=== PATIENT | female | born 1960 | race Caucasian/White ===

== ENCOUNTER 2017-10-13 09:15 | Emergency (ER) | payer MEDICAID, SELFPAY ==
[2017-10-13] VITALS (29 sets, daily range): BP systolic 106–138; BP diastolic 58–110; PULSE 54–76; RESP 12–25; TEMP 36.7; O2SAT 95–100
--- NOTE | 2017-10-13 09:31 | DI.REPORT_ITS ---
SYMPTOM/DIAGNOSIS: CHEST PAIN PA AND LATERAL CHEST: Comparison is made with 25 September 2012. The heart size is normal. The aorta is mildly tortuous The lungs appear clear. No infiltrate, effusion or pneumothorax is seen. IMPRESSION: No acute abnormality.
--- NOTE | 2017-10-13 09:32 | ED.GENADUL ---
Disposition Clinical Impression: Chest pain Disposition: HOME Condition: Stable Instructions: Chest Pain (ED) Additional Instructions: follow up with your primary care provider this week if you have severe worsening of pain, difficulty breathing or pain that makes you vomit or have sweating return to the emergency department Medical Decision Making - Lab Data Results reviewed for labs ordered during visit: Yes - EKG Data -: EKG Interpreted by Me EKG shows normal: sinus rhythm, axis, intervals, QRS complexes, ST-T waves Rate: normal Interpretation: normal EKG - Radiology Data Radiology results: image reviewed - Medical Decision Making 57 yo female here with intermittent sensation of fluttering in her chest, normal tele so far here and unremarkable ekg. Could be having svt vs afib. Symptoms do not seem consistent with acs, heart score is 2 based on smoking history and age, will send troponin. Wells score low, will send d dimer. No tearing back pain and normal vascular exam so doubt dissection labs and imaging show no acute findings, she remains stable and asymptomatic at this time. Given her heart score of 2 feel she is appropriate for delta troponin and if negative can have outpatient w/u pt remains astymptomatic, second troponin negative. will have her see her pcp's office this week and return precautions given - Differential Diagnosis afib, palpitations, acs, pe History of Present Illness - General Chief complaint: Chest Pain Stated complaint: CHEST PAIN Time Seen by Provider: 10/13/17 09:15 Source: patient Mode of arrival: ambulatory Limitations: no limitations - History of Present Illness Initial comments: 57 yo female who denies chronic medical problems, former smoker who quit 17 years ago, comes in with intermittent fluttering sensation in her chest that started after waking up this morning. she states yesterday she felt her normal self and went to bed feeling well, no recent fevers, travel or surgeries. She denies any radiation of pain, diaphoresis, n/v, back pain. She has no abdominal tenderness. Denies pain with exertion. She states the fluttering sensation lasts a few minutes and goes away on it's own, denies any sensation that she may pass out MD Complaint: fluttering in chest Onset/Timin -: hour(s) Location: chest Radiation: non-radiation Severity scale (1-10): 1 Quality: other (fluttering) Consistency: intermittent Improves with: none Worsens with: none Associated Symptoms: denies other symptoms Treatments Prior to Arrival: none - Related Data Ibuprofen 400 mg PO PRN 10/19/16 Allergies Allergy/AdvReac Type Severity Reaction Status Date / Time No Known Allergies Allergy Unverified 10/13/17 09:31 Review of Systems Constitutional: denies: fever Respiratory: denies: shortness of breath Cardiovascular: chest pain, palpitations. denies: dyspnea on exertion Gastrointestinal: denies: abdominal pain, nausea, vomiting Musculoskeletal: denies: back pain Neurological: denies: headache Comment: All other systems reviewed and negative Past Medical History - Past Medical History Medical history: no medical history - Social History Smoking status: former smoker Alcohol use: occasionally Drug use: none General Exam - General Limitations: no limitations General appearance: alert, in no apparent distress - Head Head exam: Present: atraumatic - Eye Eye exam: Present: normal apperance - ENT ENT exam: Present: mucous membranes moist - Neck Neck exam: Present: normal inspection - Respiratory Respiratory exam: Present: normal lung sounds bilaterally. Absent: respiratory distress - Cardiovascular Cardiovascular Exam: Present: regular rate, normal rhythm, normal heart sounds - GI/Abdominal GI/Abdominal exam: Absent: tenderness - Back Exam Back exam: Present: normal inspection - Neurological Exam Neurological exam: Present: alert, oriented X3 - Psychiatric Psychiatric exam: Present: normal affect - Skin Skin exam: Present: warm Course Vital Signs - 24 hr 10/13/17 09:25 Temperature 98.1 F Pulse 76 Respiratory 16 Rate Blood Pressure 136/62 Pulse Oximetry 97
[2017-10-13] MEDS: Aspirin 81 MG CHEW 324 MG CH (09:35)
[2017-10-13 09:57] LABS: Abs Immature Grans 0.01 k/cumm (0.0-0.09); Absolute Basophil Count 0.13 k/cumm (0.0-0.2); Absolute Eosinophil Count 0.15 k/cumm (0.0-0.7); Absolute Monocyte Count 0.38 k/cumm (0.11-0.7); Absolute Neutrophil Count 4.17 k/cumm (1.2-6.7); Basophils % 1.9; Eosinophils % 2.2; HCT 43.8 % (36.0-46.0); HGB 14.6 g/dL (12.0-15.5); Immature Grans % 0.1; Lymphocytes % 29.2; Mean Corp. HGB Concentration 33.3 g/dL (32.0-36.0); Mean Corpuscular Hemoglobin 30.4 pg (27.0-33.0); Mean Corpuscular Volume 91.3 fL (80-95); Mean Platelet Volume 9.8 fL (8.0-11.0); Monocytes % 5.6; Platelet Count 286 x1000/uL (130-400); RBC Distribution Width 12.9 % (11.7-14.6); White Blood Cell Count 6.84 k/cumm (4.4-10.8)
[2017-10-13 10:05] LABS: ALT 17 U/L (12-78); AST 14 U/L (15-37); Albumin 3.7 g/dL (3.4-5.0); Alkaline Phosphatase 71 U/L (46-116); Anion Gap 8.2 mmol/L (3-11); BUN 12 mg/dL (7-18); Bilirubin, Total 0.4 mg/dL (0.2-1.0); CO2 29.8 mmol/L (21.0-32.0); CREATININE 0.66 mg/dL (0.55-1.02); Calcium 8.8 mg/dL (8.5-10.1); Chloride 105 mmol/L (98-107); Glucose 92 mg/dL (70-100); Potassium 3.9 mmol/L (3.5-5.1); Sodium 143 mmol/L (136-145); Total Protein 7.1 g/dL (6.4-8.2)
[2017-10-13 10:07] LABS: Troponin I < 0.02 ng/mL (0.00-0.06)
[2017-10-13 10:19] LABS: D-Dimer 412 ng/mlFEU (<500)
--- NOTE | 2017-10-13 11:00 | DI.VRAD_ITS ---
EXAM: XR Chest, 2 Views EXAM DATE/TIME: 10/13/2017 10:01 AM CLINICAL HISTORY: 57 years old, female; Signs and symptoms; Other: Chest pain TECHNIQUE: Frontal and lateral views of the chest. COMPARISON: CR - ABD FLAT UPRIGHT PA CHEST 2012-09-25 08:51 FINDINGS: Lungs: Unremarkable. No consolidation. Pleural space: Unremarkable. No pneumothorax. Heart: Unremarkable. No cardiomegaly. Mediastinum: Unremarkable. Bones/joints: Unremarkable. IMPRESSION: No acute findings. Dictated and Authenticated by: Lori Loco MD. Ordering:LAI WOODS MD
[2017-10-13 12:45] LABS: Troponin I < 0.02 ng/mL (0.00-0.06)
--- NOTE | 2017-10-14 11:43 | CMPROGNOTE_ITS ---
Care Management Progress Note 10/14-Dr. Montoya requested assistance with a PCP f/u (Julio Cesar) this week for chest pain. Referral faxed to [facility] this am.
== END 2017-10-13 13:17 | disposition home or self-care (01) ==
PROVIDERS: Emergency Provider Emergency Medicine; PCP Family Medicine
DX: R07.9 Chest pain, unspecified (principal); Z87.891 Personal history of nicotine dependence
CPT/HCPCS: 36415; 80053; 93005; 99284; 71046; 83735; 84484; 85025; 85379; 86618; 87798; 93010

== ENCOUNTER 2018-07-08 09:01 | Outpatient (CLI) | payer MEDICAID, SELFPAY ==
[2018-07-08 12:26] LABS: Vitamin B12 215 pg/mL (193-986)
== END 2018-07-08 09:21 ==
PROVIDERS: PCP Family Medicine; Visit Provider Family Medicine
DX: R20.2 Paresthesia of skin (principal)
CPT/HCPCS: 36415; 82607

== ENCOUNTER 2018-08-21 01:05 | Outpatient (CLI) | payer MEDICAID, SELFPAY ==
--- NOTE | 2018-08-21 08:20 | DI.MAMMO_ITS ---
SYMPTOM/DIAGNOSIS: SCREENING, Z12.31 MAMMOGRAM: 08/21 Mammograms were interpreted according to the usual protocol including computer analysis with CAD system, tomosynthesis and C view imaging. The breasts are of moderate density with fairly symmetrical distribution of fibroglandular tissue. No dominant mass or clumped microcalcifications identified in either breast. The current examination is compared with the previous examinations including Dec 2015, and there has been no gross interval change in appearance in comparison with the previous studies. CONCLUSION: No specific evidence of malignancy at this time. Routine screening examinations recommended at yearly intervals due to the family history of breast carcinoma. Category 1, breast density category B. MQSA ASSESSMENT OF FINDINGS: Negative. Category 1. Patient will receive a letter notifying them of these results. BI-RADS category B. There are scattered areas of fibroglandular density.
== END 2018-08-21 01:25 ==
PROVIDERS: PCP Family Medicine; Visit Provider Family Medicine
DX: Z12.31 Encounter for screening mammogram for malignant neoplasm of breast (principal); Z80.3 Family history of malignant neoplasm of breast
CPT/HCPCS: 77063; 77067

== ENCOUNTER 2018-09-22 00:32 | Outpatient (CLI) | payer MEDICAID, SELFPAY ==
--- NOTE | 2018-09-22 09:25 | DI.MRI_ITS ---
SYMPTOMS/DIAGNOSIS: LEFT SCIATICA WITH BILATERAL CLAUDICATION, M54.16, RADICULAR LUMBAR REGION MRI OF THE LUMBAR SPINE: Routine noncontrast examination was performed. There are no priors for comparison. The conus medullaris has a normal appearance and location. At L 5 - S 1 there is disc desiccation. There is a small central disc herniation. No significant central spinal canal stenosis is seen. Mild narrowing of the neural foramen is seen bilaterally. There are degenerative changes of the facet joints. At L 4 - 5 there is disc desiccation. Mild degenerative endplate signal changes are present. No focal disc herniation or significant central spinal canal stenosis or neural foraminal stenosis is seen. There are degenerative changes of the facets. At L 3 - 4 there is disc desiccation. No focal disc herniation, central spinal canal or neural foraminal stenosis is seen. At L 2 - 3 there are mild degenerative endplate signal changes. No focal disc herniation, central spinal canal or neural foraminal stenosis is present. At L 1 - 2 there is no focal disc herniation, central spinal canal or neural foraminal stenosis. Note is made of degenerative disease at T 11, T 12. IMPRESSION: Multilevel degenerative changes in the lumbar spine. The findings do result in mild narrowing of the neural foramen at L 5 - S 1.
== END 2018-09-22 00:52 ==
PROVIDERS: PCP Family Medicine; Visit Provider Psychiatry & Neurology Neurology
DX: M54.16 Radiculopathy, lumbar region (principal); M54.32 Sciatica, left side; M51.17 Intervertebral disc disorders with radiculopathy, lumbosacral region
CPT/HCPCS: 72148

== ENCOUNTER 2018-10-08 09:51 | Outpatient (CLI) | payer MEDICAID, SELFPAY ==
--- NOTE | 2018-10-08 09:21 | DI.RAD_ITS ---
SYMPTOMS/DIAGNOSIS: RT KNEE PAIN RIGHT KNEE: Comparison is made with [id number]. There is now mild narrowing of the lateral femoral tibial joint space and periarticular spurring. There is mild spurring at the patellofemoral joint. No joint effusion is visible. IMPRESSION: Moderate degenerative changes of the lateral femoral tibial joint.
== END 2018-10-08 10:11 ==
PROVIDERS: PCP Family Medicine; Visit Provider Physician Assistant
DX: M25.561 Pain in right knee (principal)
CPT/HCPCS: 73562

== ENCOUNTER 2019-12-16 02:56 | Outpatient (CLI) | payer MEDICAID, SELFPAY ==
[2019-12-16 09:38] LABS: ALT 19 U/L (14-59); AST 20 U/L (15-37); Albumin 3.9 g/dL (3.4-5.0); Alkaline Phosphatase 64 U/L (46-116); Anion Gap 6.8 mmol/L (3-11); BUN 13 mg/dL (7-18); Bilirubin, Total 0.5 mg/dL (0.2-1.0); CO2 29.2 mmol/L (21.0-32.0); Calcium 9.1 mg/dL (8.5-10.1); Calculated LDL 108 mg/dL (<100); Chloride 105 mmol/L (98-107); Cholesterol 255 mg/dL (<200); Glucose 85 mg/dL (74-106); HDL Cholesterol 140 mg/dL (40-60); Potassium 4.5 mmol/L (3.5-5.1); Sodium 141 mmol/L (136-145); Total Protein 7.1 g/dL (6.4-8.2); Triglyceride 36 mg/dL (<150); Vitamin B12 260 pg/mL (193-986)
[2019-12-16 09:56] LABS: C-Reactive Protein < 0.05 mg/dL (0.0-0.3)
[2019-12-16 19:50] LABS: Rheumatoid Factor <8.6 IU/mL (<12.0)
== END 2019-12-16 03:16 ==
DX: D51.8 Other vitamin B12 deficiency anemias (principal); Z13.220 Encounter for screening for lipoid disorders; Z00.00 Encounter for general adult medical examination without abnormal findings; I10 Essential (primary) hypertension; M79.641 Pain in right hand; M79.642 Pain in left hand; M79.671 Pain in right foot; M79.672 Pain in left foot
CPT/HCPCS: 36415; 80053; 80061; 82607; 86140; 86431

== ENCOUNTER 2020-01-06 01:29 | Outpatient (CLI) | payer MEDICAID, SELFPAY ==
--- NOTE | 2020-01-06 07:45 | DI.MAMMO_ITS ---
EXAM: MG MAMMO SCREENING CLINICAL HISTORY: screening,Z12.39 TECHNIQUE: Bilateral full field digital CC and MLO mammographic images were obtained with 3D tomosyn thesis and utilizing computer aided detection (CAD). COMPARISON: Available for comparison. FINDINGS: Masses/Architectural Distortion: None seen. Microcalcifications: No suspicious pleomorphic-type are seen. Skin Thickening/Nipple Retraction: None. IMPRESSION: 1. No significant interval change with no specific features of malignancy noted. 2. Unless there is more urgent need, screening mammography is recommended, as per [employer] guidelines. BI-RADS Category 1 - Negative Breast Density - Category B - Scattered areas of fibroglandular density A negative radiographic report should not delay biopsy if a dominant or clinically suspicious mass is present. Up to ten percent of cancers are not identified on mammography. A negative report may reinforce clinical impression. Adenosis and dense breasts may obscure an underlying neoplasm. False positive reports average 6 to 10%. Patient will receive a letter notifying them of these results.
== END 2020-01-06 01:49 ==
DX: Z12.31 Encounter for screening mammogram for malignant neoplasm of breast (principal)
CPT/HCPCS: 77063; 77067

== ENCOUNTER 2020-05-23 03:36 | Outpatient (CLI) | payer MEDICAID, SELFPAY ==
[2020-05-24 13:50] LABS: COVID-19 RT-PCR UVMMC Result Negative (Negative)
== END 2020-05-23 03:37 | disposition home or self-care (01) ==
LOC: LBO 03:37
DX: Z20.822 Contact with and (suspected) exposure to COVID-19 (principal)
CPT/HCPCS: U0003

== ENCOUNTER 2020-12-29 02:49 | Outpatient (CLI) | payer MEDICAID, SELFPAY ==
[2020-12-29 09:16] LABS: ALT 26 U/L (14-59); AST 17 U/L (15-37); Albumin 3.8 g/dL (3.4-5.0); Alkaline Phosphatase 74 U/L (46-116); Anion Gap 9.2 mmol/L (3-11); BUN 11 mg/dL (7-18); Bilirubin, Total 0.6 mg/dL (0.2-1.0); CO2 28.8 mmol/L (21.0-32.0); CREATININE 0.6 mg/dL (0.55-1.02); Chloride 106 mmol/L (98-107); Glucose 84 mg/dL (74-106); Potassium 4.4 mmol/L (3.5-5.1); Sodium 144 mmol/L (136-145); Total Protein 6.6 g/dL (6.4-8.2)
== END 2020-12-29 02:50 | disposition home or self-care (01) ==
LOC: LBO 02:49
DX: Z00.00 Encounter for general adult medical examination without abnormal findings (principal)
CPT/HCPCS: 36415; 80053

== ENCOUNTER 2021-01-13 02:01 | Outpatient (CLI) | payer MEDICAID, SELFPAY ==
--- NOTE | 2021-01-13 14:15 | DI.MAMMO_ITS ---
Exam(s) MAMMO SCREENING EXAM: MAMMO SCREENING CLINICAL HISTORY: screening, Z12.39 TECHNIQUE: Mammograms were interpreted according to the usual protocol including computer analysis w [employer] CAD system, tomosynthesis and C-view imaging. COMPARISON: 2012 through 2019 FINDINGS: The breasts are composed of scattered fibroglandular densities, Breast Density category B. No suspicious masses or suspicious microcalcifications are seen. No skin thickening or abnormal axillary lymph nodes are seen. There has been no significant change from prior exams. IMPRESSION: BI-RADS Category 1, Negative mammogram Yearly screening mammography is recommended. Breast Density - Category B, scattered fibroglandular densities. A negative radiographic report should not delay biopsy if a dominant or clinically suspicious mass is present. Up to ten percent of cancers are not identified on mammography. A negative report may reinforce clinical impression. Adenosis and dense breasts may obscure an underlying neoplasm. False positive reports average 6 to 10%. Patient will receive a letter notifying them of these results.
== END 2021-01-13 02:21 ==
DX: Z12.31 Encounter for screening mammogram for malignant neoplasm of breast (principal)
CPT/HCPCS: 77063; 77067

== ENCOUNTER 2022-07-10 02:54 | Outpatient (CLI) | payer MEDICAID, SELFPAY ==
[2022-07-10 07:41] LABS: Anion Gap 6.2 mmol/L (3-11); BUN 13 mg/dL (7-18); CO2 27.8 mmol/L (21.0-32.0); CREATININE 0.7 mg/dL (0.55-1.02); Calcium 8.8 mg/dL (8.5-10.1); Chloride 107 mmol/L (98-107); Estimated GFR 98.34 (mL/min/1.73m2); Glucose 85 mg/dL (74-106); Potassium 4.1 mmol/L (3.5-5.1); Sodium 141 mmol/L (136-145)
== END 2022-07-10 02:55 | disposition home or self-care (01) ==
LOC: LBO 02:55
PROVIDERS: PCP Nurse Practitioner Family; Visit Provider Nurse Practitioner Family
DX: I10 Essential (primary) hypertension (principal); Z13.1 Encounter for screening for diabetes mellitus
CPT/HCPCS: 36415; 80048

== ENCOUNTER 2022-07-17 01:19 | Outpatient (CLI) | payer MEDICAID, SELFPAY ==
--- NOTE | 2022-07-17 07:35 | DI.MAMMO_ITS ---
Exam(s) MAMMO SCREENING EXAM: MAMMO SCREENING CLINICAL HISTORY: screening,z12.39 TECHNIQUE: Bilateral full field digital CC and MLO mammographic images were obtained with 3D tomosyn thesis and utilizing computer aided detection (CAD). COMPARISON: Available for comparison. FINDINGS: Masses/Architectural Distortion: None seen. Microcalcifications: No suspicious pleomorphic-type are seen. Skin Thickening/Nipple Retraction: None. IMPRESSION: 1. No significant interval change with no specific features of malignancy noted. 2. Unless there is more urgent need, screening mammography is recommended, as per [employer] [employer] guidelines. BI-RADS Category 1 - Negative Breast Density - Category B - Scattered areas of fibroglandular density Breast density category C or D implies that the patient has dense breast tissue. Dense breast tissue is very common and is not abnormal but dense breast tissue can make it harder to find cancer on a ma mmogram. Also, dense breast tissue may increase their breast cancer risk. This information about the result of the mammogram report was provided to the patient to raise their awareness. Use this report when you speak with the patient about their risks for breast cancer, which includes their family hist ory. At that time, you may recommend for more screening tests (Ultrasound or MRI) as they might be us eful based on their risk. A negative radiographic report should not delay biopsy if a dominant or clinically suspicious mass is present. Up to ten percent of cancers are not identified on mammography. A negative report may reinforce clinical impression. Adenosis and dense breasts may obscure an underlying neoplasm. False positive reports average 6 to 10%. Patient will receive a letter notifying them of these results.
== END 2022-07-17 01:39 ==
PROVIDERS: PCP Nurse Practitioner Family; Visit Provider Nurse Practitioner Family
DX: Z12.31 Encounter for screening mammogram for malignant neoplasm of breast
CPT/HCPCS: 77063; 77067

== ENCOUNTER 2022-10-18 12:43 | Outpatient (CLI) | payer MEDICAID, SELFPAY ==
[2022-10-18 16:28] LABS: MCH 30.1 pg (27.0-33.0); MCHC 33.3 % (32.0-36.0); MCV 90 fL (80-95); MPV 9.3 fL (8.0-11.0); Platelet Count 305 10^3/uL (130-400); RBC 4.65 10^6/uL (3.93-5.22); RDW 12.4 % (11.7-14.6); RDW-SD 40.6 fL; WBC 8.04 10^3/uL (4.4-10.8)
[2022-10-18 18:02] LABS: TSH (W/Ref FT4) 1.71 uIU/mL (0.36-3.74)
== END 2022-10-18 12:44 | disposition home or self-care (01) ==
LOC: LBO 10-23 12:43
PROVIDERS: PCP Nurse Practitioner Family; Visit Provider Nurse Practitioner Family
DX: R53.83 Other fatigue (principal); R00.2 Palpitations; Z13.1 Encounter for screening for diabetes mellitus
CPT/HCPCS: 36415; 85027; 83036; 84443

== ENCOUNTER 2023-01-23 15:10 | Outpatient (REF) | payer MEDICAID, SELFPAY ==
[2023-01-23 21:47] LABS: Bilirubin Negative (Negative); Blood Trace-lysed (Negative); Clarity Clear (Clear); Glucose Negative (Negative); Ketones Trace mg/dL (Negative); Leukocyte Esterase Small (Negative); Nitrite Negative (Negative); Urobilinogen 0.2 mg/dL (Up to 0.2); pH 5.5 (5-8)
[2023-01-23 21:57] LABS: Bacteria Rare HPF (Negative); C & S Indicated? Yes; Casts Negative LPF (Negative); Crystals Negative HPF (Negative); Epithelial Cells Rare HPF (Negative); Mucus Trace (Negative); RBC 0-2 HPF (0-2)
== END 2023-01-23 15:11 | disposition home or self-care (01) ==
LOC: LBN 15:10
PROVIDERS: PCP Nurse Practitioner Family; Visit Provider Nurse Practitioner Family
DX: R30.0 Dysuria (principal); N39.0 Urinary tract infection, site not specified; R82.89 Other abnormal findings on cytological and histological examination of urine
CPT/HCPCS: 81003; 81015; 87086; 87480; 87510; 87660

== ENCOUNTER 2023-07-02 05:46 | Outpatient (CLI) | payer MEDICAID, SELFPAY ==
[2023-07-02 16:39] LABS: Anion Gap 7.8 mmol/L (3-11); BUN 15 mg/dL (7-18); CO2 27.2 mmol/L (21.0-32.0); CREATININE 0.5 mg/dL (0.55-1.02); Calcium 8.7 mg/dL (8.5-10.1); Chloride 107 mmol/L (98-107); Estimated GFR 105.98 (mL/min/1.73m2); Glucose 83 mg/dL (74-106); Sodium 142 mmol/L (136-145)
== END 2023-07-02 05:47 | disposition home or self-care (01) ==
LOC: LBO 05:46
PROVIDERS: PCP Nurse Practitioner Family; Visit Provider Nurse Practitioner Family
DX: I10 Essential (primary) hypertension (principal)
CPT/HCPCS: 36415; 80048

== ENCOUNTER → 2023-07-24 04:09 | Outpatient (CLI) | payer MEDICAID, SELFPAY ==
--- NOTE | 2023-07-24 08:00 | DI.MAMMO_ITS ---
Exam(s) MAMMO SCREENING EXAM: MAMMO SCREENING CLINICAL HISTORY: screening, Z12.39 TECHNIQUE: Mammograms were interpreted according to the usual protocol including computer analysis w [employer] CAD system, tomosynthesis and C-view imaging. COMPARISON: 2014 through 2022 FINDINGS: The breasts are composed of mainly fatty density , Breast Density category A. No suspicious masses or suspicious microcalcifications are seen. No skin thickening or abnormal axillary lymph nodes are seen. There has been no significant change from prior exams. IMPRESSION: BI-RADS Category 1, Negative mammogram Yearly screening mammography is recommended. Breast Density - Category A, fatty density. A negative radiographic report should not delay biopsy if a dominant or clinically suspicious mass is present. Up to ten percent of cancers are not identified on mammography. A negative report may reinforce clinical impression. Adenosis and dense breasts may obscure an underlying neoplasm. False positive reports average 6 to 10%. Patient will receive a letter notifying them of these results.
== END ==
PROVIDERS: PCP Nurse Practitioner Family; Visit Provider Nurse Practitioner Family
DX: Z12.31 Encounter for screening mammogram for malignant neoplasm of breast (principal)
CPT/HCPCS: 77063; 77067

== ENCOUNTER → 2023-09-17 01:05 | Outpatient (CLI) | payer MEDICAID, SELFPAY ==
--- OUTSIDE RECORDS SUMMARY | 2023-09-17 01:08 | XMS_ITS | Clinical Summary ---
Author Organization [facility] Address [address] [place] [address] Care Team Providers Care Cannon Fire Direction Specialist Name Role Phone Unknown, Provider Primary Care Provider [phone] Social History Tobacco Use Types Packs/Day Years Used Date Smoking Tobacco: Never Assessed Sex and Gender Information Value Date Recorded Sex Assigned at Not on file Gender Identity Not on file Sexual Orientation Not on file Plan of Treatment Health Maintenance Due Date Last Done Comments Hepatitis C Screen 1960 RSV Immunization ( o r 60+ Years) (1 - 1-dose 60+ series) 2021 COVID-19 Vaccine ( season) 2022 Care Teams Cannon Fire Direction Specialist Relationship Specialty Start Date End Date Unknown, Provider, PCP - General 12/29/14
--- OUTSIDE RECORDS SUMMARY | 2023-09-17 01:09 | XMS_ITS | Encounter Summary ---
Author Organization [facility] [place] [address] Care Team Providers Care Windows 7 Deployment Lead Name Role Phone Wilbur Harrell MD Primary Care Provider [phone] Encounter Details Date Type Department Care Team (Late st Contact Info) Description 09/25/2018 Orders Only Vascular Surgery at [facility] [place] [address] Sally Pool, FAMILY SERVICE WORKER PVD (peripheral vascular disease) Social History Tobacco Use Types Packs/Day Years Used Date Smoking Tobacco: Never Assessed Sex and Gender Information Value Date Recorded Sex Assigned at Not on file Gender Identity Not on file Sexual Orientation Not on file documented as of this encounter Plan of Treatment Not on file documented as of this encounter Results * XAVIER, legs, multiple levels (10/28/2018 12:49 PM EDT) VB Text Report Department: Vascular Surgery Lab Patient: [id number] (AJIT ROSADO) CPT: 17162 ICD10: I73.9 Referring Physician: TALITA SORIA MD ?? Phone: Indications: ??Bilateral leg pain and L hip pain with standing and walking. Diabetes mellitus: No ICD10 Diagnosis Code: I73.9 Findings: Right ?Pressure (mm Hg) ?? XAVIER ??Waveform ?? Brachial Artery ?139 ? Common Femoral Artery ?Triphasic ?? Popliteal Artery ? Triphasic ?? Dorsalis Pedis (Ankle) Artery ?140 ? 1.01 ??Triphasic ?? Posterior Tibial (Ankle) Artery ??143 ? 1.03 ??Triphasic ?? Left ? Pressure (mm Hg) ?? XAVIER ??Waveform ?? Brachial Artery ?137 ? Common Femoral Artery ?Triphasic ?? Popliteal Artery ? Triphasic ?? Dorsalis Pedis (Ankle) Artery ?139 ? 1.00 ??Triphasic ?? Posterior Tibial (Ankle) Artery ??139 ? 1.00 ??Triphasic ?? Interpretation: RIGHT: No significant lower extremity arterial occlusive disease identified at rest. LEFT: No significant lower extremity arterial occlusive disease identified at rest. Comparison: ??No previous study in our vascular lab database for comparison. Comment: If patient symptoms are consistent with vascular claudication, consider treadmill exam to identify arterial stenoses that are hemodynamically significant only when the periphery is vasodilated. Electronically Signed by: RICHARD VARGAS on 2018-10-29 02:18:25 PM [facility] VB Text Report End of Report [facility] 10/28/2018 12:4 9 PM EDT Talita Soria MD VASCULAR ORDERABLES [facility] documented in this encounter Visit Diagnoses Diagnosis PVD (peripheral vascular disease) Peripheral vascular disease, unspecified documented in this encounter Care Teams Windows 7 Deployment Lead Relationship Specialty Start Date End Date Wilbur Harrell MD [address] [place] [address] PCP - General Family Medicine 09/24/18 documented as of this encounter
--- OUTSIDE RECORDS SUMMARY | 2023-09-17 01:09 | XMS_ITS | Referral Summary ---
Author Organization [facility] Address [address] [place] [address] Care Team Providers Care Intelligence Research Specialist Name Role Phone Unknown, Provider Primary Care Provider Social History Tobacco Use Types Packs/Day Years Used Date Smoking Tobacco: Never Assessed Sex and Gender Information Value Date Recorded Sex Assigned at Not on file Gender Identity Not on file Sexual Orientation Not on file Plan of Treatment Not on file Care Teams Intelligence Research Specialist Relationship Specialty Start Date End Date Unknown, Provider, PCP - General 12/29/14
--- OUTSIDE RECORDS SUMMARY | 2023-09-17 01:09 | XMS_ITS | Encounter Summary ---
Author Organization [facility] Address [address] [place] [address] Care Team Providers Care Receivable Manager Name Role Phone Unknown, Provider Primary Care Provider [phone] Encounter Details Date Type Department Care Team (Late st Contact Info) Description 12/16/2019 Lab Requisition [facility] Pathology & Laboratory Medicine - [address] [address] Outr Resulting Lab, Provider Social History Tobacco Use Types Packs/Day Years Used Date Smoking Tobacco: Never Assessed Sex and Gender Information Value Date Recorded Sex Assigned at Not on file Gender Identity Not on file Sexual Orientation Not on file documented as of this encounter Plan of Treatment Not on file documented as of this encounter Procedures Procedure Name Priority Date/Time Associated Diagnosis Comments RHEUMATOID FACTOR Routine 12/16/2019 8:00 EDT documented in this encounter Results * RHEUMATOID FACTOR (12/16/2019 8:00 EDT) Rheumatoid Factor <8.6 <12.0 IU/mL 12/16/2019 19:46 EDT [facility] Blood VENOUS BLOOD / Unknown 12/16/2019 8:00 EDT 12/16/2019 19:34 EDT Provider Outr Resulting Lab CHEMISTRY & BLOOD GAS ORDERABLES [facility] [address] [place] [address] documented in this encounter Visit Diagnoses Not on filedocumented in this encounter Care Teams Receivable Manager Relationship Specialty Start Date End Date Unknown, ProviderMD PCP - General 12/29/14 documented as of this encounter
--- OUTSIDE RECORDS SUMMARY | 2023-09-17 01:09 | XMS_ITS | Encounter Summary ---
Author Organization [facility] Address [address] [place] [address] Care Team Providers Care Financial Aid Director Name Role Phone Unavailable Primary Care Provider Saul e Encounter Details Date Type Department Care Team (Late st Contact Info) Description 11/11/2007 Before PRISM Converted Visit (Maple) [facility] - Maple conversion [address] [place] [address] Ada Razo, [facility] [address] [place] [address] [place] [address] Social History Tobacco Use Types Packs/Day Years Used Date Smoking Tobacco: Never Assessed Sex and Gender Information Value Date Recorded Sex Assigned at Not on file Gender Identity Not on file Sexual Orientation Not on file documented as of this encounter Plan of Treatment Not on file documented as of this encounter Procedures Procedure Name Priority Date/Time Associated Diagnosis Comments HPV DETECTION, HIGH RISK TYPES Routine 11/11/2007 14:20 EDT CYTOPATHOLOGY Routine 11/11/2007 0:00 EDT documented in this encounter Results * HUMAN PAPILLOMA VIRUS DNA TEST (11/11/2007 14:20 EDT) Specimen Description Cervix, ThinPrep vial [facility] Result Negative for HPV types 16, 18, 31, 33, 35, 39, 45, 51, 52, 56, 58, 59, and 68. [facility] Report Status Final [id number] [facility] 11/11/2007 14:2 0 EDT 11/14/2007 13:46 EDT Ada Loveod OVEN TENDER MICROBIOLOGY - GENER AL ORDERABLES [facility] [address] [place] [address] * CYTOPATHOLOGY (11/11/2007 0:00 EDT) Pathology Report: CYTOPATHOLOGY REPORT ? Reports generated via electronic interface contain original data; ? however they are lacking the format of the original report. ? Caution should be taken when reading/interpreti ng unformatted reports. ? Name: ? AJIT ROSADO ? Accession #: ? [id number] ? : ? 1960 (Age: 47) ??F ?Collect Date: ? 11/11/2007 ? Location: ? [facility] ? Receive Date: ? 11/12/2007 ? Provider: ?ADA DANNI OVEN TENDER ? Copy to: ? Specimen/Source: ?ThinPrep Pap Test, Vagina, processed on Cytyc ThinPrep ?? Imaging System, with manual evaluation ? Last Menstrual Period: ? Treatment History: ? Hysterectomy: 1992 S/P ? Other: ? HPVDX - HPV testing requested regardless of diagnosis on current ThinPrep Pap ?? test. ? SPECIMEN ADEQUACY ? Satisfactory for Evaluation ? - assessment of transformation zone component not applicable ( e.g. atrophy, ? vaginal sample, hysterectomy) ? GENERAL CATEGORIZATION ? Negative for Intraepithelial Lesion or Malignancy ? Document reviewed and electronically signed by: ? Yumiko Lujan, SCT(ASCP) ? Report Date: ??11/13/2007 15:39 ? End of Report ? [facility] 11/11/2007 11/12/2007 Ada Razo OVEN TENDER PATHOLOGY ORDERABLES Performing Organization Address City/State/[facility] Co de Phone Number [facility] [address] [address] documented in this encounter Visit Diagnoses Not on filedocumented in this encounter
--- OUTSIDE RECORDS SUMMARY | 2023-09-17 01:09 | XMS_ITS | Clinical Summary ---
Author Organization [facility] Address [facility] [place] [address] Care Team Providers Care Melt House Drag Operator Name Role Phone Wilbur Harrell MD Primary Care Provider [phone] Allergies No known active allergies Medications Medication Sig Dispensed Refills Start Date End Date Status cyanocobalamin, vitamin B-12, 1,000 mcg Tablet Take 1,000 mcg by mouth daily. Active Family History Medical History Relation Comments Lymphoma Father Coronary Artery Disease Mother Liver Disease Mother Abdominal Aortic Aneurysm Neg Hx Relation Status Comments Father Mother Social History Tobacco Use Types Packs/Day Years Used Date Smoking Tobacco: Former Smokeless Tobacco: Former Quit: 10/28/2000 Comments:1 ppd x 25yr Sex and Gender Information Value Date Recorded Sex Assigned at Not on file Gender Identity Not on file Sexual Orientation Not on file Last Filed Vital Signs Vital Sign Reading Time Taken Comments Blood Pressure 158/73 10/28/2018 2:03 PM EDT Pulse 59 10/28/2018 2:03 PM EDT Temperature - - Respiratory Rate 18 10/28/2018 2:03 PM EDT Oxygen Saturation - - Inhaled Oxygen Concentration - - Weight 74.4 kg (164 lb) 10/28/2018 2:03 PM EDT Height 152.4 cm (5') 10/28/2018 2:03 PM EDT Body Mass Index 32.03 10/28/2018 2:03 PM EDT Plan of Treatment Health Maintenance Due Date Last Done Comments CT Colonography 1961 Colonoscopy 1961 Colorectal Cancer Screening 1961 FIT DNA 1961 FIT 1961 Sigmoidoscopy (10 year) with FIT yearly 1961 Sigmoidoscopy 1961 HIV screen 1979 Hepatitis C Screening 1979 Tdap adult 1980 Tetanus vaccine 1980 HPV test 1991 PAP Smear 1991 Breast Cancer Share Decision Needed 2001 Breast Cancer screening 2001 Zoster vaccine (1 of 2) 2011 Advance Directive 2016 Covid-19 Vaccine (1 - season) 2022 Influenza (Flu) vaccine (1 o f 1 - Influenza standard series) 10/27/2023 Care Teams Melt House Drag Operator Relationship Specialty Start Date End Date Wilbur Harrell MD [address] [place] [address] PCP - General Family Medicine 09/24/18
--- OUTSIDE RECORDS SUMMARY | 2023-09-17 01:09 | XMS_ITS | Encounter Summary ---
Author Organization [facility] Address [address] [place] [address] Care Team Providers Care Debeader Name Role Phone Unknown, Provider Primary Care Provider Encounter Details Date Type Department Care Team (Late st Contact Info) Description 05/23/2020 Lab Requisition [facility] Pathology & Laboratory Medicine - [address] [address] Outr Resulting Lab, Provider Social History Tobacco [...] Procedure Name Priority Date/Time Associated Diagnosis Comments ZZCOVID-19 TEST [facility] PCR Today 05/23/2020 9:50 EDT COVID-19 TESTING Routine 05/23/2020 9:50 EDT documented in this encounter Results * COVID-19 TEST [facility] PCR (05/23/2020 9:50 EDT) Swab ENTIRE NASOPHARYNX / Unknown 05/23/2020 9:50 EDT 05/23/2020 16:12 EDT Provider Outr Resulting Lab MICROBIOLOGY - GENERAL ORDERABLES [facility] [address] [place] [address] * COVID-19 TESTING (05/23/2020 9:50 EDT) COVID-19 rt-PCR Result Negative Negative 05/24/2020 13:42 EDT [facility] Comment: This test has not been FDA cleared or approved. This test has been authorized by FDA under an EUA for use by authorized laboratories. This test has been authorized only for detection of nucleic acid from 2019-nCoV, not for any other viruses or pathogens. This test is only authorized for the duration of the declaration that circumstances exist justifying the authorization of emergency use of in vitro diagnostic tests for detection and/or diagnosis of 2019-nCoV under section 564(b)(1) of Act, 21 U.S.C ?? 360bbb-3(b) (1), unless the authorization is terminated or revoked sooner. Negative results do not preclude 2019-nCoV infection and should not be used as the sole basis for treatment or other patient management decisions. Negative results must be combined with clinical observations, patient history, and epidemiological information. This test was developed and its performance characteristics determined by [facility]. It has not been cleared or approved by the US Food and Drug Administration. FDA does not require this test to go through premarket FDA review. This test is used for clinical purposes. It should not be regarded as investigational or for research. This laboratory is certified under the Clinical Laboratory Improvement Amendments (CLIA) as qualified to perform high complexity clinical laboratory testing. This test is based on the CDC COVID-19 Emergency Use Authorization (EUA) assay, with minor modification as defined by the FDA Performed on the Pikanoteo 7 Pro RT-PCR System. Performing Lab [facility] 05/24/2020 13:42 EDT [facility] Swab 05/23/2020 9:50 EDT 05/23/2020 16:12 EDT Provider Outr Resulting Lab MICROBIOLOGY - GENERAL ORDERABLES [facility] [address] [place] [address] documented in this encounter Visit Diagnoses Not on filedocumented in this encounter Care Teams Debeader Relationship Specialty Start Date End Date Unknown, Provider, PCP - General 12/29/14 documented as of this encounter
--- OUTSIDE RECORDS SUMMARY | 2023-09-17 01:09 | XMS_ITS | Encounter Summary ---
Author Organization [facility] Address [facility] [place] [address] Care Team Providers Care Elastic Cutter Name Role Phone Yumiko Arango MD Primary Care Provider Encounter Details Date Type Department Care Team (Late st Contact Info) Description 09/22/2018 Ancillary Procedure [place] [id number] Wilbur Harrell MD [facility] [address] [facility] [address] [place], [place] [address] Social History Tobacco Use Types Packs/Day Years Used Date Smoking Tobacco: Never Assessed Sex and Gender Information Value Date Recorded Sex Assigned at Not on file Gender Identity Not on file Sexual Orientation Not on file documented as of this encounter Plan of Treatment Not on file documented as of this encounter Procedures Procedure Name Priority Date/Time Associated Diagnosis Comments FILM LIBRARY STORAGE ONLY MR SPINE Routine 09/22/2018 12:00 AM EDT documented in this encounter Results * Film Library- Storage Only MR Spine (09/22/2018 12:00 AM EDT) Narrative RAD - 09/23/2018 4:01 PM EDT This exam is auto-finalizing. It's purpose is for storage only. Wilbur Harrell MD G FILM LIBRARY ORD ERABLES [place], [place] documented in this encounter Visit Diagnoses Not on filedocumented in this encounter Care Teams Elastic Cutter Relationship Specialty Start Date End Date Yumiko Arango MD [address] [place] [address] PCP - General 01/17/10 09/23/18 documented as of this encounter
--- OUTSIDE RECORDS SUMMARY | 2023-09-17 01:09 | XMS_ITS | Encounter Summary ---
Author Organization [facility] [place] [address] Care Team Providers Care Flight Communications Officer Name Role Phone Wilbur Harrell MD Primary Care Provider Encounter Details Date Type Department Care Team (Late st Contact Info) Description 10/28/2018 1:00 PM EDT Tech [place] [address] [place], [place] PVD (peripheral vascular disease) Social History Tobacco [...] Procedure Name Priority Date/Time Associated Diagnosis Comments XAVIER, LEGS, MULTIPLE LEVELS Routine 10/28/2018 12:49 PM EDT PVD (peripheral vascular disease) documented in this encounter Results * XAVIER, legs, multiple levels (10/28/2018 12:49 PM EDT) VB Text Report Department: Vascular Surgery Lab Patient: [id number] (ASHLEECOLEMANAJIT) CPT: 02708 ICD10: I73.9 Referring Physician: TALITA SORIA MD [...] unspecified documented in this encounter Care Teams Flight Communications Officer Relationship Specialty Start Date End Date Wilbur Harrell MD [address] [place] [address] PCP - General Family Medicine 09/24/18 documented as of this encounter
--- OUTSIDE RECORDS SUMMARY | 2023-09-17 01:09 | XMS_ITS | Encounter Summary ---
Author Organization Counts Include [facility] Address [facility] [place] [address] Care Team Providers Care Lead Network Architect Name Role Phone Wilbur Harrell MD Primary Care Provider [phone] Reason for Visit * Reason Comments Circulatory Problem pt here for bilat le g pain up to the hip left hip pain at night * Consultation (Routine) - Closed Specialty Diagnoses / Procedures Referred By Contac t Referred To Contact Vascular Surgery Diagnoses Peripheral vascular disease, unspecified LE CLAUDICATION Alisha Gomez MD [facility] [address] [place] [address] [facility] Vascular Surg [address] [place] [address] Referral ID Status Reason Start Date Expiration Date V isits Requested Visits Authorized [id number] Closed Consult, Test & Treat Connection Center 09/24/2018 09/24/2019 1 1 Encounter Details Date Type Department Care Team (Late st Contact Info) Description 10/28/2018 2:00 PM EDT Office [place] [address] Pennie Jurado MD [facility] [place] [address] Claudication Social History Tobacco Use Types Packs/Day Years Used Date Smoking Tobacco: Former Smokeless Tobacco: Former Quit: 10/28/2000 Comments:1 ppd x 25yr Sex and Gender Information Value Date Recorded Sex Assigned at Not on file Gender Identity Not on file Sexual Orientation Not on file documented as of this encounter Last Filed Vital Signs Vital Sign Reading [...] Mass Index 32.03 10/28/2018 2:03 PM EDT documented in this encounter Progress Notes * Pennie Jurado MD - 10/28/2018 2:00 PM EDT [facility] OUTPAT[facility] VASCULAR SURGERY INITIAL CONSULT SERVICE DATE: 10/28/2018 SERVICE TIME: 2:15 PM PRIMARY CARE PHYSICIAN: Wilbur Harrell MD REFERRING PROVIDER: Alisha Gomez MD [facility] [place] [address] Consult requested for an opinion regarding the evaluation and treatment of the above. My final impression and recommendations will be communicated back to the requesting physician by way of the shared medical record or letter via US mail. Subjective CHIEF COMPLAINT/HISTORY OF PRESENT ILLNESS: Chief Complaint: bilateral leg burning History of Present Illness: Samaria Fountain is a 58 y.o. female referred for an opinion regarding management of pain and burning in bilateral legs w/ambulation. Patient states that over the last few months she's noted worsening pain in legs L>R and feet when she walks. Sometimes feet will start to tingle. States burning mostly in her calves. Reports that some days she can walk 50-100 ft, other days can walk a mile before symptoms develop. Denies any symptoms at rest. Leaning forward does not help. Doesn't notice any thing that helps other than stop walking. Denies any back or neck pain. Has seen neurologist and underwent MRI which noted multilevel degenerative changes resulting in mild foraminal narrowing at L5-S1. Clinically note prior to MRI states that they felt she had neurogenic claudication and radiculopathy. Following the MRI she was referred to see vascular surgery. Atherosclerotic Risk Factors: (-) DM (-) HTN (-) CAD (-) CHF (-) Hyperlipidemia (-) CVA (-) CKD/ESRD + past smoker PAST MEDICAL/SURGICAL/FAMILY/SOCIAL HISTORY Past Medical History: Diagnosis Date ??? Arthritis ??? Hypertension Past Surgical History: Procedure Laterality Date ??? APPENDECTOMY ??? BUNIONECTOMY ??? HYSTERECTOMY Family History Problem Relation Age of Onset ??? Coronary Artery Disease Mother ??? Liver Disease Mother ??? Lymphoma Father ??? Abdominal Aortic Aneurysm Neg Hx Social History Tobacco Use ??? Smoking status: Never Smoker ??? Smokeless tobacco: Never Used Substance Use Topics ??? Alcohol use: Not on file ??? Drug use: Not on file Current Outpatient Medications Medication Sig Dispense Refill ??? cyanocobalamin, vitamin B-12, 1,000 mcg Tablet Take 1,000 mcg by mouth daily. No current facility-administered medications for this visit. No Known Allergies COMPLETE REVIEW OF SYSTEMS GENERAL: No weight loss, malaise or fevers. HEENT: Negative for frequent or significant headaches NECK: Negative for pain and significant neck swelling RESPIRATORY: Negative for cough, wheezing or shortness of breath. CARDIOVASCULAR: Negative for chest pain, or palpitations GI: Negative for abdominal discomfort, change in bowel habits, hematochezia, melena, nausea, vomiting : No history of dysuria, negative for CKD or ESRD Endo: no hx of DM MUSCULOSKELETAL: Negative for new joint pain. SKIN: Negative for new lesions. Chronic skin changes/ulcers PSYCH: Negative HEMATOLOGY/LYMPHOLOGY: Negative for prolonged bleeding, no history of clotting.NEURO: No new symptoms of TIA, amaurosis, weakness, or difficultly speaking All other reviewed and negative other than HPI. Objective PHYSICAL EXAM Physical Exam Performed BP 158/73 (BP Location (NBP): Left arm, Patient Position: Sitting) Pulse 59 Resp 18 Ht 152.4 cm (5') Wt 74.4 kg (164 lb) BMI 32.03 kg/m?? CONSTITUTIONAL: alert, well developed, well nourished, in no acute distress NEUROLOGIC/PSYCHIATRIC: Grossly normal HEENT: normal atraumatic, no neck masses, normal thyroid, no jvd LUNGS: Normal chest wall and respirations. Clear to auscultation. HEART: regular rate and rhythm, S1, S2 normal, no murmur, click, rub or gallop ABDOMEN: soft, non-tender; bowel sounds normal; no masses, no organomegaly. No pulsatile abdominal mass INTEGUMENTARY: Wound - none SURGICAL SITES: none MUSCULOSKELETAL: negative Pulses/Signals: Brachial Radial Femoral Popliteal Dorsalis Pedis Posterior Tibial Right 2/2 2/2 2/2 2/2 2/2 2/2 Left 2/2 2/2 2/2 2/2 2/2 2/2 DATA: Laboratory: None Radiology: 10/28/18 XAVIER Right ?Pressure (mm Hg) ?? XAVIER ??Waveform ?? Brachial Artery ?139 ? Common Femoral Artery ?Triphasic ?? Popliteal Artery ? Triphasic ?? Dorsalis Pedis (Ankle) Artery ?140 ? 1.01 ??Triphasic ?? Posterior Tibial (Ankle) Artery ??143 ? 1.03 ??Triphasic ? Left ? Pressure (mm Hg) ?? XAVIER ??Waveform ?? Brachial Artery ?137 ? Common Femoral Artery ?Triphasic ?? Popliteal Artery ?Triphasic ?? Dorsalis Pedis (Ankle) Artery ?139 ? 1.00 ??Triphasic ?? Posterior Tibial (Ankle) Artery ??139 ? 1.00 ??Triphasic ? 09/22/18 MRI lumbar spine ([facility]) Multilevel degenerative changes in lumbar spine. This finding does result in mild narrowing of neural foramen at L5-S1. I have personally reviewed the following images/data: XAVIER Impression: 58 y.o. female w/burning/tingling of bilateral calves and feet with ambulation. Symptoms overlap more with neurogenic cause however some features suggest vascular claudication. Her XAVIER atrest and vascular exam are normal, however may have disease w/drop in activity. Atherosclerotic risk factors include remote smoker. Exercise XAVIER will determine if perfusion drops w/activity to help more definitely rule in/out vascular etiology of her symptoms. Plan: - XAVIER with exercise treadmill test - will followup after to discuss results SIGNATURE: Pennie Jurado MD PATIENT NAME: Samaria Fountain DATE: October 28, 2018 TIME: 2:15 PM documented in this encounter Plan of Treatment Not on file documented as of this encounter Visit Diagnoses Diagnosis Claudication Peripheral vascular disease, unspecified documented in this encounter Care Teams Lead Network Architect Relationship Specialty Start Date End Date Wilbur Harrell MD [address] [facility] [address] [place] [address] PCP - General Family Medicine 09/24/18 documented as of this encounter
--- NOTE | 2023-09-17 07:30 | DI.RAD_ITS ---
Exam(s) XR KNEE LT 3V AP,LAT,ALLYSSA EXAM: XR KNEE LT 3V AP,LAT,ALLYSSA CLINICAL HISTORY: no improvement with PT,lt knee pain,m25.562. TECHNIQUE: 2D digital imaging was performed of the left knee. Three images were obtained. AP, late ral and PA tunnel views were obtained. COMPARISON: No exams were available for comparison FINDINGS: BONES: No acute fracture is present. No bony destructive lesion is seen. JOINTS: The knee is normally aligned. No joint effusion is seen. There are mild degenerative changes seen in the lateral joint compartment where there osteophytes present. SOFT TISSUE: Well corticated osseous densities are seen adjacent to the anterior tibial tuberosity. IMPRESSION: Mild degenerative changes in the lateral knee. DATA REPOSITORY: RADIATION DOSE DELIVERED:
--- NOTE | 2023-09-17 07:30 | DI.RAD_ITS ---
Exam(s) XR KNEE RT 3V AP,LAT,ALLYSSA EXAM: XR KNEE RT 3V AP,LAT,ALLYSSA CLINICAL HISTORY: no improvement with PT,primary oa rt knee,m17.11. TECHNIQUE: 2D digital imaging was performed of the right knee. Three views obtained. AP, lateral an d PA tunnel views were obtained. COMPARISON: CR XR knee RT 3V AP,lat,allyssa from 10/08/2018 FINDINGS: BONES: No acute fracture is present. No bony destructive lesion is seen. JOINTS: The knee is normally aligned. In the lateral femoral tibial joint, there is moderate joint sp vasu narrowing. Osteophytes are seen at the posterior patella and in the lateral femoral tibial joint . There is a very small joint effusion. SOFT TISSUE: Normal. IMPRESSION: Moderate degenerative changes in the right knee. DATA REPOSITORY: RADIATION DOSE DELIVERED:
--- NOTE | 2023-09-17 07:30 | DI.RAD_ITS ---
Exam(s) XR HIP PELVIS ADULT BL EXAM: XR HIP PELVIS ADULT BL CLINICAL HISTORY: no improvement with PT,bilat hip pain,m25.551,m25.552. TECHNIQUE: 2D digital imaging was performed. COMPARISON: No exams were available for comparison FINDINGS: 3 views No evidence of pelvic nor hip fractures. Noted joint space narrowing. No hip joint osteophytes. Jesus ne density normal. No osseous lesions. Sacroiliac joints appear unremarkable. Advanced disc space narrowing and facet arthropathy at L5-S1 level noted. IMPRESSION: No significant osseous findings in the hips. Given the history of bilateral hip pain and advanced di sc space narrowing and facet arthropathy L5-S1 1 might consider possibility of referred neurologic pa in related to bilateral foraminal stenosis at L5-S1. DATA REPOSITORY: RADIATION DOSE DELIVERED:
--- NOTE | 2023-09-17 07:30 | DI.RAD_ITS ---
Exam(s) XR LUMBAR SPINE COMPLETE EXAM: XR LUMBAR SPINE COMPLETE CLINICAL HISTORY: no improvement with PT,lt lumbar radiculopathy,m54.16. TECHNIQUE: 2D digital imaging was performed. COMPARISON: No exams were available for comparison FINDINGS: Five views There is no evidence of fracture, listhesis, nor pars defects. There is advanced disc space narrowing at L5-S1 level. Also significant bilateral facet arthropathy at this level. Minimal disc height narrowing at L4-5 level. Facets at L4-5 appear unremarkable as d o the facet joints at levels above this. Bone density normal. No osseous lesions. Sacroiliac joints appear unremarkable. There is no scoliosis. Multiple phleboliths noted in both sides of the pelvis. Some calcification is noted in the lower cole f of the abdominal aorta. IMPRESSION: Advanced chronic disc space narrowing at L5-S1. Also significant bilateral facet arthropathy at this level. There is, however, no listhesis evident at this level. Other findings as above. DATA REPOSITORY: RADIATION DOSE DELIVERED:
== END ==
PROVIDERS: PCP Nurse Practitioner Family; Visit Provider Nurse Practitioner Family
DX: M17.11 Unilateral primary osteoarthritis, right knee (principal); M25.562 Pain in left knee; M54.16 Radiculopathy, lumbar region; M25.551 Pain in right hip; M25.552 Pain in left hip; M99.53 Intervertebral disc stenosis of neural canal of lumbar region
CPT/HCPCS: 73521; 73562; 72110

== ENCOUNTER 2023-10-04 00:33 | Outpatient (CLI) | payer MEDICAID, SELFPAY ==
--- OUTSIDE RECORDS SUMMARY | 2023-10-04 00:34 | XMS_ITS | Referral Summary ---
Author Organization [facility] Address [address] [place] [address] Care Team Providers Care Syrup Mixer Name Role Phone Unknown, Provider Primary Care Provider Social History Tobacco Use Types Packs/Day Years Used Date Smoking Tobacco: Never Assessed Sex and Gender Information Value Date Recorded Sex Assigned at Not on file Gender Identity Not on file Sexual Orientation Not on file Plan of Treatment Not on file Care Teams Syrup Mixer Relationship Specialty Start Date End Date Unknown, Provider, PCP - General 12/29/14
--- OUTSIDE RECORDS SUMMARY | 2023-10-04 00:34 | XMS_ITS | Encounter Summary ---
Author Organization [facility] Address [address] [place] [address] Care Team Providers Care Manager Corporate Name Role Phone Unavailable Primary Care Provider Saul e Encounter Details Date Type Department Care Team (Late st Contact Info) Description 11/11/2007 Before PRISM Converted Visit (Maple) [facility] - Maple conversion [address] [place] [address] Ada Razo, [facility] [address] [place] [address] [place] [address] Social History Tobacco Use Types [...] 51, 52, 56, 58, 59, and 69. [facility] Report Status Final [id number] [facility] 11/11/2007 14:2 0 EDT 11/14/2007 13:46 EDT Ada Loveod SODA TESTER MICROBIOLOGY - GENER AL ORDERABLES [facility] [address] [place] [address] * CYTOPATHOLOGY (11/11/2007 0:00 EDT) Pathology Report: CYTOPATHOLOGY REPORT ? Reports generated via electronic interface contain original data; ? however they are lacking the format of the original report. ? Caution should be taken when reading/interpreti ng unformatted reports. ? Name: ? AJIT ROSADO ? Accession #: ? [id number] ? : ? 1960 (Age: 47) ??F ?Collect Date: ? 11/11/2007 ? Location: ? [facility] ? Receive Date: ? 11/12/2007 ? Provider: ?ADA DANNI SODA TESTER ? Copy to: ? Specimen/Source: ?ThinPrep Pap [...] [facility] 11/11/2007 11/12/2007 Ada Razo SODA TESTER PATHOLOGY ORDERABLES Performing Organization Address City/State/[facility] Co de Phone Number [facility] [address] [address] documented in this encounter Visit Diagnoses Not on filedocumented in this encounter
--- OUTSIDE RECORDS SUMMARY | 2023-10-04 00:34 | XMS_ITS | Encounter Summary ---
Author Organization [facility] Address [facility] [place] [address] Care Team Providers Care Kitchen And Bath Designer Name Role Phone Yumiko Arango MD Primary Care Provider [phone] Encounter Details Date Type Department Care Team (Late st Contact Info) Description 09/22/2018 Ancillary Procedure [place] [phone] Wilbur Harrell MD [facility] [address] [facility] [address] [place], [place] [address] Social History Tobacco Use Types Packs/Day Years [...] Harrell MD G FILM LIBRARY ORD ERABLES [place], [place] documented in this encounter Visit Diagnoses Not on filedocumented in this encounter Care Teams Kitchen And Bath Designer Relationship Specialty Start Date End Date Yumiko Arango MD [address] [place] [address] PCP - General 01/17/10 09/23/18 documented as of this encounter
--- OUTSIDE RECORDS SUMMARY | 2023-10-04 00:34 | XMS_ITS | Encounter Summary ---
Author Organization [facility] Address [facility] [place] [address] Care Team Providers Care Pin Drafter Name Role Phone Wilbur Harrell MD Primary Care Provider [phone] Reason for Visit * Reason Comments Circulatory Problem pt here for bilat le g pain up to the hip left hip pain at night * Consultation (Routine) - Closed Specialty Diagnoses / Procedures Referred By Contac t Referred To Contact Vascular Surgery Diagnoses Peripheral vascular disease, unspecified LE CLAUDICATION Alisha Gomez MD [facility] [address] [place] [address] [facility] [address] [place] [address] Referral ID Status Reason Start Date Expiration Date V isits Requested Visits Authorized [id number] Closed Consult, Test & Treat Connection Center 09/24/2018 09/24/2019 1 1 Encounter Details Date Type Department Care Team (Late st Contact Info) Description 10/28/2018 2:00 PM EDT Office Visit [place] [address] Pennie Jurado MD [facility] [place] [address] Claudication Social History Tobacco Use [...] Harrell MD REFERRING PROVIDER: Alisha Gomez MD [facility] [place] [place] [address] Consult requested for an opinion regarding the [...] 1.00 ??Triphasic ? 09/22/18 MRI lumbar spine ([facility]) Multilevel degenerative changes in lumbar spine. [...] unspecified documented in this encounter Care Teams Pin Drafter Relationship Specialty Start Date End Date Wilbur Harrell MD [address] [facility] [address] [place] [address] PCP - General Family Medicine 09/24/18 documented as of this encounter
--- OUTSIDE RECORDS SUMMARY | 2023-10-04 00:34 | XMS_ITS | Encounter Summary ---
Author Organization [facility] Address [address] [place] [address] Care Team Providers Care Triage Specialist Name Role Phone Unknown, Provider Primary Care Provider Encounter Details Date Type Department Care Team (Late st Contact Info) Description 12/16/2019 Lab Requisition [facility] Pathology & Laboratory Medicine - [address] [address] Outr Resulting Lab, Provider Social History Tobacco [...] Factor <8.6 <12.0 IU/mL 12/16/2019 19:46 EDT [facility] Blood VENOUS BLOOD / Unknown 12/16/2019 8:00 EDT 12/16/2019 19:34 EDT Provider Outr Resulting Lab CHEMISTRY & BLOOD GAS ORDERABLES [facility] [address] [place] [address] documented in this encounter Visit Diagnoses Not on filedocumented in this encounter Care Teams Triage Specialist Relationship Specialty Start Date End Date Unknown, ProviderMD PCP - General 12/29/14 documented as of this encounter
--- OUTSIDE RECORDS SUMMARY | 2023-10-04 00:34 | XMS_ITS | Encounter Summary ---
Author Organization [facility] [place] [address] Care Team Providers Care Office Copy Selector Name Role Phone Wilbur Harrell MD Primary Care Provider [phone] Encounter Details Date Type Department Care Team (Late st Contact Info) Description 10/28/2018 1:00 PM EDT Tech Visit [place] [address] Dorothea [place], [place] PVD (peripheral [...] Text Report Department: Vascular Surgery Lab Patient: [id number] (ASHLEECOLEMANAJIT) CPT: 54134 ICD10: I73.9 Referring Physician: TALITA SORIA MD [...] unspecified documented in this encounter Care Teams Office Copy Selector Relationship Specialty Start Date End Date Wilbur Harrell MD [address] [place] [address] PCP - General Family Medicine 09/24/18 documented as of this encounter
--- OUTSIDE RECORDS SUMMARY | 2023-10-04 00:34 | XMS_ITS | Clinical Summary ---
Author Organization [facility] Address [facility] [place] [address] Care Team Providers Care Glost Placer Name Role Phone Wilbur Harrell MD Primary Care Provider [phone] Allergies No known active allergies Medications Medication [...] - Influenza standard series) 10/27/2023 Care Teams Glost Placer Relationship Specialty Start Date End Date Wilbur Harrell MD [address] [place] [address] PCP - General Family Medicine 09/24/18
--- OUTSIDE RECORDS SUMMARY | 2023-10-04 00:34 | XMS_ITS | Clinical Summary ---
Author Organization [facility] Address [address] [place] [address] Care Team Providers Care Principal Network Engineer Name Role Phone Unknown, Provider Primary Care Provider [phone] Social History Tobacco Use Types Packs/Day Years [...] COVID-19 Vaccine ( season) 2022 Care Teams Principal Network Engineer Relationship Specialty Start Date End Date Unknown, Provider, PCP - General 12/29/14
--- OUTSIDE RECORDS SUMMARY | 2023-10-04 00:34 | XMS_ITS | Encounter Summary ---
Author Organization [facility] Address [facility] [place] [address] Care Team Providers Care Animal Care Specialist Name Role Phone Wilbur Harrell MD Primary Care Provider [phone] Encounter Details Date Type Department Care Team (Late st Contact Info) Description 09/25/2018 Orders Only Vascular Surgery at [facility] [place] [address] Sally Pool, HAZ TECH PVD (peripheral vascular disease) Social History Tobacco [...] Text Report Department: Vascular Surgery Lab Patient: [id number] (AJIT ROSADO) CPT: 89318 ICD10: I73.9 Referring Physician: TALITA SORIA MD [...] unspecified documented in this encounter Care Teams Animal Care Specialist Relationship Specialty Start Date End Date Wilbur Harrell MD [address] [place] [address] PCP - General Family Medicine 09/24/18 documented as of this encounter
--- OUTSIDE RECORDS SUMMARY | 2023-10-04 00:34 | XMS_ITS | Encounter Summary ---
Author Organization [facility] Address [address] [place] [address] Care Team Providers Care Incident Response Engineer Name Role Phone Unknown, Provider Primary Care Provider [phone] Encounter Details Date Type Department Care Team (Late st Contact Info) Description 05/23/2020 Lab Requisition [facility] Pathology & Laboratory Medicine - [address] [address] Outr Resulting Lab, Provider Social History Tobacco [...] Outr Resulting Lab MICROBIOLOGY - GENERAL ORDERABLES [facility] [address] [place] [address] * COVID-19 TESTING (05/23/2020 9:50 EDT) COVID-19 rt-PCR Result Negative Negative 05/24/2020 13:42 EDT [facility] Comment: This test has [...] developed and its performance characteristics determined by [facility]. It has not been cleared or [...] defined by the FDA Performed on the [employer] Pro RT-PCR System. Performing Lab [facility] Lab 05/24/2020 13:42 EDT [facility] Swab 05/23/2020 9:50 EDT 05/23/2020 16:12 EDT Provider Outr Resulting Lab MICROBIOLOGY - GENERAL ORDERABLES [facility] [address] [place] [address] documented in this encounter Visit Diagnoses Not on filedocumented in this encounter Care Teams Incident Response Engineer Relationship Specialty Start Date End Date Unknown, Provider, PCP - General 12/29/14 documented as of this encounter
--- NOTE | 2023-10-04 06:45 | DI.MRI_ITS ---
Exam(s) MR LUMBAR SPINE WO EXAM: MR LUMBAR SPINE WO CLINICAL HISTORY: no improvement with PT,foraminal stenosis,M48.07. TECHNIQUE: Multiplanar multisequence MRI of the Lumbar spine was performed. CR XR LUMBAR SPINE COMPLETE from 09/17/2023 FINDINGS: Conus medullaris is at normal level. There is no evidence of conus mass nor subjacent clumping of in trathecal nerve roots to suggest arachnoiditis. The distal thecal sac appears unremarkable.There is no evidence of Tarlov intrasacral cysts nor other significant findings within the sacral canal Bones:There are no fractures nor ominous osseous lesions in the lumbar vertebral bodies and visualize d sacrum. There is mild anterolisthesis L5 upon S1 noted limited to facet arthropathy. No pars defe cts. (See below) With respect to the individual levels... T11-12: There is a disc protrusion at this level seen on the sagittal images. The axial images do no t reached this high. This disc protrusion is central-subligamentous and appears unchanged from prior MRI scan of 2019. It indents the thecal sac but not the distal spinal cord. T12-L1: This level exhibits mild annular bulging but no prominent disc herniation or central canal st enosis nor foraminal stenosis. Facet joints unremarkable. L1-2: Normal disc height and signal. No disc herniation nor central canal stenosis.No foraminal steno sis L2-3: Normal disc height. No disc herniation nor central canal stenosis.No foraminal stenosis.No face t arthropathy. L3-4: Normal disc height. There is mildly asymmetric in bulging of the left side of the annulus in t he floor of the exiting left neural foramen. There is no prominent disc herniation. There is no nas e foraminal stenosis at this level on either side. Also no central canal stenosis. Facet joints unr emarkable. L4-5: Normal disc height and signal. There is symmetrical mild annular bulging without a dominant di sc herniation. No central canal stenosis. No foraminal stenosis on either side. Right facet joint unremarkable. Some degenerative changes noted in the left facet joint with unchanged increased signa l with in the left facet joint space, as was also evident on the August 2018 MRI study. There is no ev idence of degenerative facet joint cyst at this level. L5-S1: This level exhibits mild disc space narrowing. Also anterolisthesis L5 upon S1 with approximat darrius 4 millimeters anterior slippage L5 upon S1 related to degenerative changes in the facet joints wh ich are moderate-severe on the right side and severe on the left side. There is mild annular bulging without a distinct disc herniation. Central canal dimensions are within normal limits. There is mi nimal if any significant foraminal stenosis at this level despite the above findings. There is no sig nificant impingement of the exiting nerve roots bilaterally at this level. Soft tissues: paraspinal soft tissues appear unremarkable. IMPRESSION: 1. Minimal if any significant change when compared to the prior MRI scan of 09/22/2018. 2. Mild anterolisthesis of L5 upon S1 due to facet arthropathy is again noted. There is no significa nt central canal stenosis nor prominent foraminal stenosis on either side at this level. 3. Other findings as above. DATA REPOSITORY:
== END 2023-10-04 00:53 ==
LOC: DI 00:33
PROVIDERS: PCP Nurse Practitioner Family; Visit Provider Nurse Practitioner Family
DX: M48.07 Spinal stenosis, lumbosacral region (principal)
CPT/HCPCS: 72148

== ENCOUNTER 2024-07-16 03:05 | Outpatient (CLI) | payer MEDICAID, SELFPAY ==
[2024-07-16 07:33] LABS: ESR 3 mm/hr (0-30); HCT 42.1 % (36.0-46.0); HGB 13.6 g/dL (11.2-15.7); MCH 29.6 pg (27.0-33.0); MCHC 32.3 % (32.0-36.0); MCV 92 fL (80-95); MPV 9.2 fL (8.0-11.0); Platelet Count 299 10^3/uL (130-400); RBC 4.59 10^6/uL (3.93-5.22); RDW 12.3 % (11.7-14.6); RDW-SD 41.4 fL; WBC 4.71 10^3/uL (4.4-10.8)
[2024-07-16 08:24] LABS: ALT 15 U/L (14-59); AST 15 U/L (15-37); Albumin 3.5 g/dL (3.4-5.0); Alkaline Phosphatase 65 U/L (46-116); Anion Gap 4.1 mmol/L (3-11); BUN 13 mg/dL (7-18); Bilirubin, Total 0.4 mg/dL (0.2-1.0); CO2 29.9 mmol/L (21.0-32.0); CREATININE 0.6 mg/dL (0.55-1.02); Calcium 9.1 mg/dL (8.5-10.1); Calculated LDL 117 mg/dL (<100); Chloride 107 mmol/L (98-107); Cholesterol 238 mg/dL (<200); Glucose 89 mg/dL (74-106); HDL Cholesterol 113 mg/dL (>or=50); Sodium 141 mmol/L (136-145); TSH (W/Ref FT4) 1.43 uIU/mL (0.36-3.74); Total Protein 6.8 g/dL (6.4-8.2); Triglyceride 40 mg/dL (<150); Vitamin B12 245 pg/mL (193-986)
[2024-07-17 08:20] LABS: Cyclic Citrullinated Peptide <2.5 U/mL (<5.0)
[2024-07-17 09:54] LABS: HBs Antibody, Quant <3.1 mIU/mL (See Note); Hep B Surface Ab Negative (See Note); Hepatitis B Core Antibody Negative (Negative); Hepatitis B Surface Antigen Negative (Negative)
[2024-07-17 10:01] LABS: Hepatitis C Ab w Rflx HCV PCR Negative (Negative)
[2024-07-17 10:14] LABS: HIV-1/2 Ag & Ab Screen Negative (Negative)
[2024-07-17 14:08] LABS: ANA Interpretation Negative (Negative)
== END 2024-07-16 03:06 | disposition home or self-care (01) ==
LOC: LBO 03:05
PROVIDERS: PCP Nurse Practitioner Family; Visit Provider Nurse Practitioner Family
DX: M79.641 Pain in right hand (principal); M79.642 Pain in left hand; Z13.220 Encounter for screening for lipoid disorders; Z11.4 Encounter for screening for human immunodeficiency virus [HIV]; R53.83 Other fatigue; Z11.59 Encounter for screening for other viral diseases
CPT/HCPCS: 36415; 80053; 80061; 85027; 85652; 86200; 86704; 86706; 86803; 87340; 87389; 82607; 84443; 86038

== ENCOUNTER 2024-08-31 14:28 | Outpatient (REF) | payer MEDICAID, SELFPAY ==
[2024-08-31 20:59] LABS: Glucose Negative (Negative)
[2024-08-31 21:15] LABS: C & S Indicated? Yes; WBC >50 HPF (0-5)
== END 2024-08-31 14:29 | disposition home or self-care (01) ==
LOC: LBN 14:28
PROVIDERS: PCP Nurse Practitioner Family; Visit Provider Nurse Practitioner Family
DX: R39.9 Unspecified symptoms and signs involving the genitourinary system (principal)
CPT/HCPCS: 87077; 81003; 81015; 87086; 87186

== ENCOUNTER 2024-12-02 12:44 | Outpatient (CLI) | payer MEDICAID, SELFPAY ==
--- NOTE | 2024-12-02 12:30 | RT.EKG_ITS ---
APPROVED REPORT Exam: Resting ECG Reason for Exam: R HUNTER Per-Op Patient Location: O HR:64 bpm ECG Measurements Heart Rate 64 AXIS RI 173 P 74 QRSd 84 QRS 50 QT 401 T 42 QTc 414 Conclusion Sinus rhythm...normal P axis, V-rate 50- 99 Normal Electrocardiogram
== END 2024-12-02 12:45 | disposition home or self-care (01) ==
LOC: DI.CM 12:45 → LBN 17:29
PROVIDERS: PCP Nurse Practitioner Family; Visit Provider Nurse Practitioner Family
DX: Z01.818 Encounter for other preprocedural examination (principal); N76.0 Acute vaginitis
CPT/HCPCS: 87480; 87510; 87660

== ENCOUNTER 2024-12-21 03:04 | Outpatient (CLI) | payer MEDICAID, SELFPAY ==
[2024-12-21 12:04] LABS: HCT 40.6 % (36.0-46.0); HGB 13.4 g/dL (11.2-15.7); MCH 30.2 pg (27.0-33.0); MCHC 33.0 % (32.0-36.0); MCV 91 fL (80-95); MPV 9.6 fL (8.0-11.0); Platelet Count 308 10^3/uL (130-400); RBC 4.44 10^6/uL (3.93-5.22); RDW 12.4 % (11.7-14.6); RDW-SD 41.8 fL; WBC 7.51 10^3/uL (4.4-10.8)
[2024-12-21 12:39] LABS: Anion Gap 8.3 mmol/L (3-11); BUN 10 mg/dL (7-18); CO2 26.7 mmol/L (21.0-32.0); Calcium 9.0 mg/dL (8.5-10.1); Chloride 104 mmol/L (98-107); Estimated GFR 100.80 (mL/min/1.73m2); Glucose 96 mg/dL (74-106); Potassium 3.7 mmol/L (3.5-5.1); Sodium 139 mmol/L (136-145)
== END 2024-12-21 03:05 | disposition home or self-care (01) ==
LOC: LBO 03:04 → LBN 11:59
PROVIDERS: PCP Nurse Practitioner Family; Visit Provider Student in an Organized Health Care Education/Training Program
DX: M16.11 Unilateral primary osteoarthritis, right hip (principal); Z01.818 Encounter for other preprocedural examination
CPT/HCPCS: 80048; 85027

== ENCOUNTER 2024-12-21 13:26 | Outpatient (CLI) | payer MEDICAID, SELFPAY ==
--- NOTE | 2024-12-21 10:52 | DI.RAD_ITS ---
Exam(s) XR PELVIS AP EXAM: XR PELVIS AP CLINICAL HISTORY: THR Planning. TECHNIQUE: 2D digital imaging was performed. COMPARISON: CR XR HIP PELVIS ADULT BL from 09/17/2023 FINDINGS: BONES: No acute fracture is present. No bony destructive lesion is seen. JOINTS: No dislocation present. There are marked degenerative changes seen in the right hip with loss of the superior joint space. Osteophytes are seen at both the acetabulum and the right femoral head. This has significantly progressed since the x-ray from 09/17/2023. The left hip is well maintained. SOFT TISSUE: Normal. IMPRESSION: Marked osteoarthritis of the right hip. DATA REPOSITORY: RADIATION DOSE DELIVERED:
== END 2024-12-21 13:27 | disposition home or self-care (01) ==
LOC: DIORS 13:26
PROVIDERS: PCP Nurse Practitioner Family; Visit Provider Physician Assistant
DX: M16.11 Unilateral primary osteoarthritis, right hip (principal)
CPT/HCPCS: 72170

== ENCOUNTER 2024-12-30 07:41 | Day surgery (SDC) | payer MEDICAID, SELFPAY ==
[2024-12-30] VITALS (37 sets, daily range): BP systolic 102–178; BP diastolic 42–134; PULSE 54–78; RESP 11–23; TEMP 36.2–36.7; O2SAT 91–100; BMI 30.9
--- NOTE | 2024-12-30 07:22 | PDOC.DSDIS_ITS ---
Date of service: 12/30/24 Discharge Plan Disposition Patient Disposition: Home Condition: Good Discharge Details Reason For Visit: R THR Attending Provider: Buster Powers Primary Care Provider: Caesar Sanches Home Meds and New Rx's Prescriptions: New celecoxib 200 mg capsule 200 mg PO BID Qty: 60 0RF aspirin 81 mg tablet,delayed release (DR/EC) 81 mg PO BID Qty: 60 0RF acetaminophen 500 mg tablet 1,000 mg PO TID Qty: 90 3RF pantoprazole 40 mg tablet,delayed release (DR/EC) 40 mg PO DAILY Qty: 14 0RF dexamethasone 4 mg tablet 4 mg PO DAILY Qty: 2 0RF docusate sodium 100 mg capsule 100 mg PO BID PRNQty: 28 0RF oxycodone 5 mg tablet 5 mg PO Q4H MDD 6 tabs PRN (Reason: pain) Qty: 12 0RF Continued lisinopril 20 mg tablet 20 mg PO DAILY Qty: 90 4RF estradiol 0.01 % (0.1 mg/gram) cream 0.5 g vaginal .Twice a week Qty: 42.5 4RF Rx Instructions: nightly for the first 7 days, then 2-3 times per week prn Discharge Instructions Additional Instructions: Total Hip Discharge Instructions Activity: The most important activity is to walk. You should try to take short walks a few times a day. You have no restrictions on movement or positioning, but do not try to force what you do. You will find some stiffness and weakness with hip flexion (lifting your knee). Do not try to strengthen this too early, continue to practice walking and stairs and this will come. - Outpatient physical therapy can be helpful to help return you to a normal gait and improve your flexibility and strength. This can start around 2 weeks. For some patients, it´s not necessary. Usually this is determined at the time of discharge or at the first post-operative visit. - You should wear the FRANCISCA hose on both legs for 2 weeks. Dressing: Keep the surgical dressing in place for at least one week. After the first week it may be removed and replace with light gauze and tape or nothing. It may get wet after 3 days but avoid soaking the dressing. If it gets wet, just lightly pat dry. It is important to always keep some gauze between skin folds, especially when you are sitting. Spend some time with the wound exposed when you are lying flat as the incision does wrinkle onto itself. Medications: - You should take Tylenol and an anti-inflammatory Celebrex as your primary pain control medications. If the Celebrex is too expensive or not covered, please call the office for another alternative (Advil/Ibuprofen or Naproxen/Aleve). - You have been prescribed a stronger pain medication Oxycodone for breakthrough pain, take as needed as prescribed. - You have also been prescribed a stomach acid reduction agent Pantoprozole to help reduce stomach acid and reflux. - You have also been prescribed Decadron to help with post-operative nausea and pain. You will take this for two days starting tomorrow. - You will be taking Aspirin 81mg twice a day for DVT prevention unless instructed otherwise. - If you have constipation you should take Colace or Miralax (both [id number]). It takes most people 3-4 days to have a bowel movement. Follow-up: 2 weeks If you have any acute concerns or questions, please do not hesitate to contact the office at [phone]. You may contact Dr. Powers with any questions after hours through the hospital at [phone] or on his cell phone at [phone]. Stand Alone Forms: Portal Information Referrals: Buster Powers MD [ [facility] STAFF PHYSICIAN, Orthopaedic Surgical] Equipment/Supplies: Walker Activity:: Activity as Tolerated Shower/Bathe:: 72 hours Diet:: As Tolerated Discharge Orders Discharge Orders: Discharge Order (Routine); Ordered 12/30/24 Ordered By: Prabhu Davis DS: Diagnosis Discharge Diagnosis (1) Osteoarthritis of right hip: Status: Acute
[2024-12-30] MEDS: Acetaminophen 500 MG TAB 1000 MG PO (08:15)
[2024-12-30] MEDS: Celecoxib 200 MG CAP 400 MG PO (08:15)
--- NOTE | 2024-12-30 08:23 | W.ANESPRE ---
General Info Height: 5 ft Weight: 71.7 kg Body Mass Index (BMI): 30.9 Surgical Procedure: Operation Date: 12/30/24 10:35 Proposed Procedure Side Surgeon p Hip Total Hip Anterior Right Buster Powers MD Meds Allergies and Home Medications Allergies Allergy/AdvReac Type Severity Reaction Status Date / Time clams Allergy Intermediate nausea Verified 12/30/24 08:14 Home Medication Medication Instructions Recorded estradiol 0.01% (0.1 mg/gram) 0.5 g vaginal .Twice a week #42.5 12/02/24 vaginal cream grams lisinopril 20 mg tablet 20 mg PO DAILY #90 tabs 12/02/24 acetaminophen 500 mg tablet 1,000 mg (2 x 500 mg) PO TID #90 12/30/24 tabs aspirin 81 mg tablet,delayed 81 mg PO BID #60 tabs 12/30/24 release celecoxib 200 mg capsule 200 mg PO BID #60 caps 12/30/24 dexamethasone 4 mg tablet 4 mg PO DAILY #2 tabs 12/30/24 docusate sodium 100 mg capsule 100 mg PO BID PRN #28 caps 12/30/24 oxycodone 5 mg tablet 5 mg PO Q4H PRN pain #12 tabs 12/30/24 pantoprazole 40 mg tablet,delayed 40 mg PO DAILY #14 tabs 12/30/24 release Current Visit Medications: Current Medications Generic Name Dose Route Start Last Admin Trade Name Freq PRN Reason Stop Dose Admin Acetaminophen 1,000 mg 12/30/24 06:00 12/30/24 08:15 Acetaminophen 500 Mg Tab PO 12/30/24 23:59 1,000 mg PREOP FREIDA Administration Acetaminophen 1,000 mg 12/30/24 07:21 Acetaminophen 500 Mg Tab PO 01/29/25 07:20 TID PRN PRN Analgesia Celecoxib 400 mg 12/30/24 06:00 12/30/24 08:15 Celecoxib 200 Mg Cap PO 12/30/24 23:59 400 mg PREOP FREIDA Administration Docusate Sodium 100 mg 12/30/24 07:21 Docusate Sodium 100 Mg Cap PO 01/29/25 07:20 BID PRN PRN Constipation Ringer's Solution 1,000 mls @ 80 mls/hr 12/30/24 06:00 IV 12/30/24 23:59 INFUSION FREIDA Cefazolin Sodium/Dextrose 2 gm in 50 mls @ 100 mls/hr 12/30/24 06:00 Ancef Duplex IVPB 12/30/24 23:59 PREOP FREIDA Tranexamic Acid/Sodium Chloride 1,000 mg in 100 mls @ 600 mls/hr 12/30/24 06:00 IVPB 12/30/24 23:59 PREOP [facility] IV Miscellaneous Supplies 1 each 12/30/24 06:00 Iv Access IV 12/30/24 23:59 DIRECTED FREIDA Ondansetron HCl 4 mg 12/30/24 07:21 Ondansetron 4 Mg/2 Ml Vial IVP 01/29/25 07:20 Q6H PRN PRN Nausea Oxycodone HCl 0 mg 12/30/24 07:21 Oxycodone 5 Mg Tab PO 01/29/25 07:20 Q3H PRN PRN Pain Polyethylene Glycol 17 gm 12/30/24 07:21 Polyethylene Glycol 3350 17 Gm Packet PO 01/29/25 07:20 BID PRN PRN Constipation Sodium Chloride 0 ml 12/30/24 06:00 Normal Saline Flush 10 Ml Syr IV 12/30/24 23:59 PRN PRN Sodium Chloride 0 ml 12/30/24 06:00 Normal Saline 10 Ml Vial IJ 12/30/24 23:59 DIRECTED PRN Sterile Water 0 ml 12/30/24 06:00 Water,Injection,Sterile 10 Ml Vial IJ 12/30/24 23:59 DIRECTED PRN PFSH Active Problems Active Problems: Problem Status Onset Code Osteoarthritis of left knee Acute M17.12 Osteoarthritis of right hip Acute M16.11 Lumbar spondylosis Acute M47.816 Foraminal stenosis of lumbosacral region Acute M48.07 Palpitations Acute R00.2 Fatigue Acute R53.83 Menopausal disorder Acute N95.9 Bilateral foot pain Acute M79.671, M79.672 Bilateral hand pain Acute M79.641, M79.642 Screening cholesterol level Acute Z13.220 Annual physical exam Acute Z00.00 Primary osteoarthritis of right knee Chronic M17.11 Essential hypertension Chronic I10 Acquired absence of both cervix and uterus Acute 09/13/16 Z90.710 Sprain of anterior talofibular ligament of left ankle Acute 01/14/17 S93.492A Synovial cyst of popliteal space [Obrien], right knee Acute 09/09/16 M71.21 Medical History Medical History Left knee pain Bilateral hip pain Surgical History Surgical History Status post abdominal hysterectomy History of appendectomy History of tooth extraction (09/20/15) Abdominal hysterectomy 1991 - bleeding Correction, Hammertoe 2011 with bunionectomy Tobacco Smoking/Tobacco Use Status: Former Tobacco Use Passive smoking exposure: Yes Second hand exposure: Yes Alcohol Alcohol Intake: current Alcohol intake frequency: a few times a week Alcohol type: beer and wine Substance Use Substance use: Never Substance use type: does not use Vital Signs and Lab Results Vital Signs Most Recent Vital Signs in EMR: Most Recent Vital Signs Temp Pulse Resp BP Pulse Ox 36.2 C L 75 16 158/80 H 98 12/30/24 08:11 12/30/24 08:11 12/30/24 08:11 12/30/24 08:11 12/30/24 08:11 Lab Results Complete Blood Count: WBC, (4.4-10.8) 7.51 10^3/uL 12/21/24, 11:30 RBC, (3.93-5.22) 4.44 10^6/uL 12/21/24, 11:30 Hgb, (11.2-15.7) 13.4 g/dL 12/21/24, 11:30 Hct, (36.0-46.0) 40.6 % 12/21/24, 11:30 Plt Count, (130-400) 308 10^3/uL 12/21/24, 11:30 Complete Metabolic Panel: Sodium, (136-145) 139 mmol/L 12/21/24, 11:30 Potassium, (3.5-5.1) 3.7 mmol/L 12/21/24, 11:30 Chloride, (98-107) 104 mmol/L 12/21/24, 11:30 Carbon Dioxide, (21.0-32.0) 26.7 mmol/L 12/21/24, 11:30 BUN, (7-18) 10 mg/dL 12/21/24, 11:30 Creatinine, (0.55-1.02) 0.6 mg/dL 12/21/24, 11:30 Est GFR (CKD-EPI 2020), (mL/min/1.73m2) 100.80 12/21/24, 11:30 Calcium, (8.5-10.1) 9.0 mg/dL 12/21/24, 11:30 Glucose, (74-106) 96 mg/dL 12/21/24, 11:30 Imaging and Studies Imaging and Studies Study information below may be from another EMR and interpreted by another provider. Please see original notes in EMR for more complete details. EKG Summary: Conclusion Sinus rhythm...normal P axis, V-rate 50- 99 Normal Electrocardiogram Anesthesia Assessment and Plan Anesthesia History Personal History: No History of Anesthesia Complications Family History: Family History Unknown Implantable Cardiac Device Does patient have a Pacemaker or an ICD?: No
[2024-12-30] MEDS: Lactated Ringers 1,000 ML 80 ML IV (08:26)
--- NOTE | 2024-12-30 09:25 | W.ANESPRE ---
General Info Date of Service Date Performed: 12/30/24 Height: 5 ft Weight: 71.7 kg Body Mass Index (BMI): 30.9 Surgical Procedure: Operation Date: 12/30/24 10:35 Proposed Procedure Side Surgeon p Hip Total Hip Anterior Right Buster Powers MD Meds Allergies and Home Medications Allergies Allergy/AdvReac Type Severity Reaction Status Date / Time clams Allergy Intermediate nausea Verified 12/30/24 08:14 Home Medication Medication Instructions Recorded estradiol 0.01% (0.1 mg/gram) 0.5 g vaginal .Twice a week #42.5 12/02/24 vaginal cream grams lisinopril 20 mg tablet 20 mg PO DAILY #90 tabs 12/02/24 acetaminophen 500 mg tablet 1,000 mg (2 x 500 mg) PO TID #90 12/30/24 tabs aspirin 81 mg tablet,delayed 81 mg PO BID #60 tabs 12/30/24 release celecoxib 200 mg capsule 200 mg PO BID #60 caps 12/30/24 dexamethasone 4 mg tablet 4 mg PO DAILY #2 tabs 12/30/24 docusate sodium 100 mg capsule 100 mg PO BID PRN #28 caps 12/30/24 oxycodone 5 mg tablet 5 mg PO Q4H PRN pain #12 tabs 12/30/24 pantoprazole 40 mg tablet,delayed 40 mg PO DAILY #14 tabs 12/30/24 release Current Visit Medications: Current Medications Generic Name Dose Route Start Last Admin Trade Name Freq PRN Reason Stop Dose Admin Acetaminophen 1,000 mg 12/30/24 06:00 12/30/24 08:15 Acetaminophen 500 Mg Tab PO 12/30/24 23:59 1,000 mg PREOP FREIDA Administration Acetaminophen 1,000 mg 12/30/24 07:21 Acetaminophen 500 Mg Tab PO 01/29/25 07:20 TID PRN PRN Analgesia Celecoxib 400 mg 12/30/24 06:00 12/30/24 08:15 Celecoxib 200 Mg Cap PO 12/30/24 23:59 400 mg PREOP FREIDA Administration Docusate Sodium 100 mg 12/30/24 07:21 Docusate Sodium 100 Mg Cap PO 01/29/25 07:20 BID PRN PRN Constipation Ringer's Solution 1,000 mls @ 80 mls/hr 12/30/24 06:00 12/30/24 08:26 IV 11/05/25 23:59 80 mls/hr INFUSION FREIDA Administration Cefazolin Sodium/Dextrose 2 gm in 50 mls @ 100 mls/hr 12/30/24 06:00 Ancef Duplex IVPB 12/30/24 23:59 PREOP FREIDA Tranexamic Acid/Sodium Chloride 1,000 mg in 100 mls @ 600 mls/hr 12/30/24 06:00 IVPB 12/30/24 23:59 PREOP FREIDA IV Miscellaneous Supplies 1 each 12/30/24 06:00 Iv Access IV 12/30/24 23:59 DIRECTED FREIDA Ondansetron HCl 4 mg 12/30/24 07:21 Ondansetron 4 Mg/2 Ml Vial IVP 01/29/25 07:20 Q6H PRN PRN Nausea Oxycodone HCl 0 mg 12/30/24 07:21 Oxycodone 5 Mg Tab PO 01/29/25 07:20 Q3H PRN PRN Pain Polyethylene Glycol 17 gm 12/30/24 07:21 Polyethylene Glycol 3350 17 Gm Packet PO 01/29/25 07:20 BID PRN PRN Constipation Sodium Chloride 0 ml 12/30/24 06:00 Normal Saline Flush 10 Ml Syr IV 12/30/24 23:59 PRN PRN Sodium Chloride 0 ml 12/30/24 06:00 Normal Saline 10 Ml Vial IJ 12/30/24 23:59 DIRECTED PRN Sterile Water 0 ml 12/30/24 06:00 Water,Injection,Sterile 10 Ml Vial IJ 12/30/24 23:59 DIRECTED PRN PFSH Active Problems Active Problems: Problem Status Onset Code History of total right hip replacement Acute 12/30/24 Z96.641 Osteoarthritis of left knee Acute M17.12 Lumbar spondylosis Acute M47.816 Foraminal stenosis of lumbosacral region Acute M48.07 Palpitations Acute R00.2 Fatigue Acute R53.83 Menopausal disorder Acute N95.9 Bilateral foot pain Acute M79.671, M79.672 Bilateral hand pain Acute M79.641, M79.642 Screening cholesterol level Acute Z13.220 Annual physical exam Acute Z00.00 Primary osteoarthritis of right knee Chronic M17.11 Essential hypertension Chronic I10 Acquired absence of both cervix and uterus Acute 09/13/16 Z90.710 Sprain of anterior talofibular ligament of left ankle Acute 01/14/17 S93.492A Synovial cyst of popliteal space [Obrien], right knee Acute 11/04/15 M71.21 Medical History Medical History Left knee pain Bilateral hip pain Surgical History Surgical History Status post abdominal hysterectomy History of appendectomy History of tooth extraction (09/20/15) Abdominal hysterectomy 1991 - bleeding Correction, Hammertoe 2011 with bunionectomy Tobacco Smoking/Tobacco Use Status: Former Tobacco Use Passive smoking exposure: Yes Second hand exposure: Yes Alcohol Alcohol Intake: current Alcohol intake frequency: a few times a week Alcohol type: beer and wine Substance Use Substance use: Never Substance use type: does not use Vital Signs and Lab Results Vital Signs Most Recent Vital Signs in EMR: Most Recent Vital Signs Temp Pulse Resp BP Pulse Ox 36.2 C L 75 16 158/80 H 98 12/30/24 08:11 12/30/24 08:11 12/30/24 08:11 12/30/24 08:11 12/30/24 08:11 Lab Results Complete Blood Count: WBC, (4.4-10.8) 7.51 10^3/uL 12/21/24, 11:30 RBC, (3.93-5.22) 4.44 10^6/uL 12/21/24, 11:30 Hgb, (11.2-15.7) 13.4 g/dL 12/21/24, 11:30 Hct, (36.0-46.0) 40.6 % 12/21/24, 11:30 Plt Count, (130-400) 308 10^3/uL 12/21/24, 11:30 Complete Metabolic Panel: Sodium, (136-145) 139 mmol/L 12/21/24, 11:30 Potassium, (3.5-5.1) 3.7 mmol/L 12/21/24, 11:30 Chloride, (98-107) 104 mmol/L 12/21/24, 11:30 Carbon Dioxide, (21.0-32.0) 26.7 mmol/L 12/21/24, 11:30 BUN, (7-18) 10 mg/dL 12/21/24, 11:30 Creatinine, (0.55-1.02) 0.6 mg/dL 12/21/24, 11:30 Est GFR (CKD-EPI 2020), (mL/min/1.73m2) 100.80 12/21/24, 11:30 Calcium, (8.5-10.1) 9.0 mg/dL 12/21/24, 11:30 Glucose, (74-106) 96 mg/dL 12/21/24, 11:30 Imaging and Studies Imaging and Studies Study information below may be from another EMR and interpreted by another provider. Please see original notes in EMR for more complete details. EKG Summary: Conclusion Sinus rhythm...normal P axis, V-rate 50- 99 Normal Electrocardiogram Anesthesia Assessment and Plan Anesthesia History Personal History: No History of Anesthesia Complications Family History: No Family History of Anesthesia Complications Exercise Tolerance Exercise Tolerance: Metabolic Equivalents>4 Pertinent Negatives Pertinent Negatives: No Symptoms of GERD, No Major Cardiovascular Symptoms or Complaints, No Major Pulmonary Symptoms or Complaints and No History of CVA/TIA Cardiac & Pulmonary Exam Cardiac Exam: Normal S1/S2 Heart Sounds Pulmonary Exam: Clear Bilateral Breath Sounds Implantable Cardiac Device Does patient have a Pacemaker or an ICD?: No Airway Exam Known Difficult Airway: No Mallampati Class: 1 Mouth Opening: Normal (> 3cm) Thyromental Distance: Greater than 3 cm Neck Range of Motion: Full ROM Neck Circumference: Normal Teeth Condition: Removable Dentures/Plates Upper and Removable Dentures/Plates Lower (partial ) ASA Classification ASA Score: ASA 2 Emergency Case?: No NPO Status NPO Status: NPO Clears >2 hours, Solids >8 hours Anesthesia Plan Resuscitation Status: Full Code Anesthesia Technique: General Anesthesia Airway Planned: Endotracheal Tube Monitors Used: Standard Monitors
[2024-12-30] MEDS: ceFAZolin 2 GM/50 ML BAG IVPB (10:25)
[2024-12-30] MEDS: TRANEXAMIC ACID/SOD. CHL. 1,000 MG/100 ML BAG 600 MG IVPB (10:35)
[2024-12-30] MEDS: Ketorolac 30 MG/ML VIAL (10:50)
[2024-12-30] MEDS: EPINEPHrine 1 MG/ML AMP pres-free (10:50)
[2024-12-30] MEDS: ROPIvacaine 0.2% 200 MG/100 ML BAG (10:51)
--- NOTE | 2024-12-30 11:40 | DI.RAD_ITS ---
Exam(s) XR HIP RT IN OR EXAM: XR HIP RT IN OR CLINICAL HISTORY: RIGHT HIP OA. TECHNIQUE: 2D digital imaging was performed. COMPARISON: No exams were available for comparison FINDINGS: Fluoroscopy provided intraoperatively during right hip arthroplasty. See procedure report for details. IMPRESSION: Radiation exposure index/cumulative dose: ta [place]= 3.2742 mGy DATA REPOSITORY: RADIATION DOSE DELIVERED:
--- NOTE | 2024-12-30 11:56 | W.PM.OP ---
Operative Note Operative Note PRE-OP DIAGNOSIS: Right Hip Osteoarthritis POST-OP DIAGNOSIS: same PROCEDURE: Right Anterior Total Hip Arthroplasty with Intraoperative Navigation SURGEON: Buster Powers ACTIVITY THERAPY SPECIALIST: Prabhu Davis ANESTHESIA TYPE: General LMA/ETT Refer to Anesthesia Record ESTIMATED BLOOD LOSS: 300 PATHOLOGY: none sent TOURNIQUET TIME: 0 COMPLICATIONS: None Patient was transported to: PACU Patient's condition: stable Implants: 1. Depuy Emphasys Acetabular Component, 48mm 2. Depuy Acetabular Liner, 34c54hr 3. Depuy Corail Short Neck 135 Degree Collared Femoral Stem, Size 9 4. Depuy Altrx Ceramic Femoral Head, Size 36+1.5mm Indications: I have seen Samaria in clinic for symptoms of hip arthritis, confirmed with radiographic findings. She has exhausted nonoperative methods and was having significant limitations in daily function and desired better function and less pain. I discussed the technical details of a hip replacement. I explained the risks of the procedure to include, but not limited to, bleeding, infection, pain, stiffness, fracture, damage to nerves and vessels, damage to muscles and tendons, loosening, instability, leg length inequality, need for repeat procedure, blood clot and cardiopulmonary demise. Despite these risks, Samaria elected to proceed. Findings: There was significant signs of arthritis throughout the hip with synovitis. Procedure Description: Samaria was greeted in the preoperative holding area where the correct side was identified and marked. The consent was reviewed with the patient and signed. The history and physical was updated. All questions were answered. She was taken back to the operating room. A general anesthestic was then administered. The feet were wrapped with cast padding and Coban and then placed into the boot liners and then into the boots. Care was taken to protect the skin and make sure the heels were fully down and the boots were stable. The patient was then positioned onto the HANA table. Both legs were held in a neutral position. SCDs were applied. The patient was then slid down onto a peroneal post. Prophylactic antibiotics in the form of Cefazolin were administered. 1g of Tranxemic Acid was given intravenously within 30 minutes of incision. The right leg was then prepped with Chloraprep and draped in a standard fashion. A second prep with Chloraprep was performed prior to placement of a shower-curtain type drape with Iodine impregnated skin protection. A timeout to confirm correct identity, side and site, procedure, allergies, anesthesia, and medical concerns was performed. An obliquely oriented incision was made starting lateral to the ASIS and running distal over the Tensor Fascia Regi (TFL) muscle belly toward the fibular head, approximately 10cm. The skin and soft tissue was dissected sharply, through Montse´s fascia, and to the fascia of the TFL. With the fascia and superior border of the IT band identified, the fascia was incised with a new knife just above any perforators from the IT band. The TFL muscle belly was bluntly dissected away from the fascia and moved laterally. The fat between TFL and rectus was identified to ensure the dissection was not within the TFL. Blunt dissection created space between abductors and the capsule and retractor was placed over the lateral femoral neck. The fibers of the rectus femoris tendon were identified and these were freed from the anterior capsule. A second cobra retractor was placed around the medial femoral neck. The TFL was further retracted laterally to show the deep fascia. Careful dissection through this layer identified three main crossing vessels of the lateral femoral circumflex. These were cauterized in multiple locations and then cut without any noticeable bleeding. The TFL was further released bluntly from the deep fascia to expose anterior hip capsule and fat The soft tissue orthopaedic retractor was then placed beneath the TFL and against sartorius and medial soft tissues to protect and retract the soft tissues. A T-capsulotomy was then performed starting at the superior lateral acetabulum and moving distally to the intertrochanteric ridge. These capsular flaps were tagged with a No. 1 Vicryl and elevated from within. The capsular flaps were released to the shoulder of the lateral neck and to the lesser trochanter to give excellent visualization of the proximal femur. A neck osteotomy was performed using an oscillating saw based on preoperative templates. This cut started in the shoulder and of the lateral neck and exited medially. The saw was at all times directed medially to avoid injury to the greater trochanter. Gross traction was applied to the leg and the osteotomy opened. The femoral head was removed with a corkscrew, making sure to protect the TFL on its exit. Traction was released after head removal. This was measured on the back table to determine the starting reamer size. Portions of the rectus obscuring visualization were minimally elevated off the superior acetabulum. An anterior retractor was placed over the anterior wall between capsule and labrum and attached to the Gripper retraction system. The femur was rotated to 90 degrees and medial capsule was fully released until the lesser trochanter was palpable and visible; the femur was returned to 30 degrees. A posterior retractor was placed similarly between capsule and labrum. This provided excellent visualization. The contents of the cotyloid fossa were removed with electrocautery and the labrum was removed with a knife. There was a notable floor osteophyte. There was significant chondromalacia of the superior acetabulum. Acetabular reaming began with a 44mm reamer. This first reaming was directed anterior to posterior and medial to get down to the true floor. This was inspected and reamed until the true floor was reached. The anterior retractor was then released and entry and exit was provided by traction on the capsular flaps. I then reamed sequentially up to a 48mm reamer where good fit was obtained. The larger reamers were oriented based on anatomical reference of the anterior and lateral ya to ensure proper abduction and anteversion. Positioning and size was confirmed with the fluoroscopy. A 48mm Depuy Emphasys acetabular component was selected. The acetabulum was reamed around the periphery with the selected acetabular size to prevent a rim fit. The deep tissues were irrigated. The acetabular component was then impacted in a position of about 40-45 degrees of abduction and 15-20 degrees of anteversion, using the patient´s anatomy as the ultimate landmark. Fluoroscopy was used to confirm this. Utilizing the straight ball multimedia instructional designer I finally impacted it into the bone. There was excellent sanitizer of the acetabular component and the inserting handle was removed. The acetabular liner, Depuy [id number] polyethylene liner, was inserted and lined up with the tines of the acetabular component. There was no soft tissue interposition. The liner was then impacted into position and confirmed to be well-seated. A portion of the enoch-articular cocktail was then injected around the acetabulum into the capsule and periosteum. This cocktail consisted of 200mg of Ropivacaine, 0.5mg of Epinephrine, and 30mg of Ketorolac, diluted to 100cc. The leg was rotated to 120 degrees. Any remaining medial capsule was released until the lesser trochanter was easily palpable. A retractor was placed medially. The lateral capsule was further released into the shoulder to allow access to the greater trochanter. A Duke retractor was placed over the greater trochanter which allowed the trochanter to flip in front of the capsule for excellent exposure. The leg was brought down into maximal extension and 20 degrees of adduction while ensuring there was no impingement on the acetabulum. Any remnant capsule within the trochanter was released. Piriformis and obturator externis were identified and protected. There was excellent access to the proximal femur. The lateral neck remnant was removed with a rongeur. A blunt canal probe was used to identify the canal and trajectory for later broaching. A box osteotome initiated the broach course. A small curved rasp and a curved curette were used to work laterally. Broaching then began with a size 8 Corail broach. This was inserted manually around the trochanter and into the canal before mallet blows. The broach was seated to a few millimeters below the cut level based on the neck cut and the preoperative template. Entry into the femur was challenging given the thickness of her cortices compared to the overall size of her proximal femur. Lateral neck remnant and lateral bone from the metaphysis was removed with a rongeur and a curette to create room for broaching of the femur. Sequential broaching was continued with the SHERPA assistantse pneumatic broaching device until a tight fit was obtained with good rotational control of the femur. A trial 135 degree short neck was inserted along with a +1.5 trial head. The leg was brought out of extension and adduction and then reduced with traction and internal rotation. The leg was stable anteriorly in a position of 30 degrees of extension and 90 degrees of external rotation. Fluoroscopy was used to ensure there was no fracture and the stem was seated well. Leg lengths were checked with an AP pelvis and pelvic reference points. nfon navigation system was used to confirm appropriate positioning and leg length and offset. Once content with the desired offset and leg lengths, the leg was brought back into extension, external rotation and adduction. The periosteum and surrounding tissue was injected with remaining portion of the enoch-articular cocktail. The proximal femur was irrigated as well as the deep tissues. The Depuy Corail Short Neck 135 degree collared stem, size 9, was then manually inserted into the proximal femur making sure to control rotation. It was then malleted into position with light blows, giving breaks to allow bone expansion and decrease risk of fracture. The selected Depuy Altrx Ceramic Head, size 36+1.5mm, was then placed onto the clean and dry trunnion and secured with impaction onto the tapered fit. The leg was brought back out of extension and adduction and reduced with traction and internal rotation. Stability was confirmed with no shuck at 90 degrees of external rotation and 30 degrees of extension. No impingement through range of motion arc. Final x-ray images were obtained with fluoroscopy to confirm adequate positioning and no intraoperative fracture. The deep tissues were thoroughly irrigated with Surgiphor, betadine solution. This was allowed to sit in the wound for 3 minutes before being thoroughly irrigated out with normal saline. The capsule was then reapproximated with the previously placed sutures and the indirect head of the rectus was inspected and reapproximated with a #1 Vicryl. The TFL fascia was finally closed with a No. 2 Stratafix, barbed suture. Deep tissues were then reapproximated with 0 Vicryl and a running 2-0 Vicryl. The skin was closed with a running 4-0 Monocryl in a subcuticular fashion. This was reinforced with skin glue. A Mepilex silver dressing was applied. At the end of the case, all counts were correct. Samaria was transferred to the hospital bed without difficulty and suffering no apparent complication. She has a good prognosis. Physical therapy will start today and without restrictions, weight-bearing as tolerated. Aspirin 81mg BID will be used for DVT prophylaxis. Date of Procedure: 12/30/24
[2024-12-30] MEDS: fentaNYL 100 MCG/2 ML VIAL IVP ×2 (12:16→12:29)
[2024-12-30] MEDS: HYDROmorphone 2 MG/ML SYR IVP ×2 (12:48→13:02)
--- NOTE | 2024-12-30 13:09 | W.ANESPOSTOP ---
Postoperative Evaluation Date, Time and Location Date Performed: 12/30/24 Time Performed: 13:10 Patient Location: PACU Vital Signs Most Recent Imported Vital Signs: Most Recent Vital Signs Temp Pulse Resp BP Pulse Ox 36.4 C L 67 12 128/63 92 12/30/24 13:00 12/30/24 13:06 12/30/24 13:06 12/30/24 13:06 12/30/24 13:06 Pain Score Most Recent Pain Score: Most Recent Pain Score Pain Level 0 12/30/24 12:10 Assessment Mental Status: Awake (Alert & Oriented to Patient Baseline) Airway and Respiratory Function: Patent airway with normal (patient baseline) respiratory exam Cardiovascular Function: Hemodynamically Stable Hydration Status: Adequately Hydrated Nausea & Vomiting: No Nausea or Vomiting Pain: Pain is tolerable per patient Peripheral Nerve Block: Patient did not receive a nerve block
[2024-12-30] MEDS: Tranexamic Acid 650 MG TAB 1300 MG PO (13:30)
[2024-12-30] MEDS: oxyCODONE 5 MG TAB PO (13:30)
--- NOTE | 2024-12-30 14:30 | IN_ITS ---
PT Notes Visit Reasons: R THR Physical Therapy Day Surgery Initial Evaluation Date: 12/30/2024 Referring Doctor: JING Arias PT Orders: PT CONSULT: S/P Ortho surgery Precautions: WBAT through the right LE with AD. Patient Profile/Admitting Diagnosis: Samaria is a 64-year-old female with degenerative joint disease of the right hip and is status post right total hip arthroplasty on postoperative day 0. PMHX: All Active Problems Osteoarthritis of left knee (Acute) Steroid injection: 02/24/2024Osteoarthritis of right hip (Acute) POCUS injection: 09/28/2024; 11/28/2023Lumbar spondylosis (Acute) Foraminal stenosis of lumbosacral region (Acute) Palpitations (Acute) Fatigue (Acute) Menopausal disorder (Acute) Bilateral foot pain (Acute) Bilateral hand pain (Acute) Screening cholesterol level (Acute) Annual physical exam (Acute) Primary osteoarthritis of right knee (Chronic) Injected: 11/11/23; 10/08/2018; 01/06/2016Essential hypertension (Chronic) Acquired absence of both cervix and uterus (Acute 09/13/16) Sprain of anterior talofibular ligament of left ankle (Acute 01/14/17) Synovial cyst of popliteal space [Obrien], right knee (Acute 11/04/15) Medical History Left knee pain Bilateral hip pain Surgical History Status post abdominal hysterectomy History of appendectomy History of tooth extraction (09/20/15) Abdominal hysterectomy 1991 - bleeding Correction, Hamm[place]oe 2011 with bunionectomy Social History/Home Situation: Lives with in a private home with 3 steps to enter with a rail on 1 side. 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 Independent with all aspects of ADLs prior to surgery but had been demonstrating increased difficulty with mobility performance due to right hip DJD. Equipment Owned/DME: None Subjective: Complained of pain at 3–4/10 on the lower part of the front of her thigh at rest and with movement. Complained of nausea that worsened with walking and subsided in the seated position. Nurse Parra was made aware and gave patient Zofran at end of session. Objective: General Observation: Mepilex Ag over surgical incision. TEDS to be legs. Cold pack to right hip. Mental Status: A and O x 4 Pain: As above ROM: Right Lower Extremity: Hip flexion WFL. Hip abduction WFL. Knee flexion WFL. Ankle dorsiflexion WFL. Ankle plantarflexion WFL. Left Lower Extremity: Hip flexion WFL. Hip abduction WFL. Knee flexion WFL. Ankle dorsiflexion WFL. Ankle plantarflexion WFL. Strength: Right Lower Extremity: Hip flexors 4-/5. Hip abductors 4-/5. Knee flexors 4/5. Knee extensors 4-/5. Ankle dorsiflexors 5/5. Ankle plantarflexors 5/5. Left Lower Extremity:Hip flexors 5/5. Hip abductors 5/5. Knee flexors 5/5. Knee extensors 5/5. Ankle dorsiflexors 5/5. Ankle plantarflexors 5/5. Sensation: Intact as to pain and light pressure in B LE Bed Mobility/Transfers: Minimal cueing provided for use of B hands as needed for support, movement sequence, AD management, and posture to reduce fall risk and minimize pain report Supine to sit standby assist Sit to stand contact-guard assist with FWW Stand to sit standby assist with FWW Bed to chair standby assist with FWW Gait: Facilitated safe and correct performance of level surface ambulation covering a distance of 100 feet with step to heel-toe gait pattern utilizing a front wheeled walker with minimal verbal cueing provided for limb movement sequence, AD management, eight distribution, nd posture to minimize pain reported reduce fall risk. Stairs: Guided patient with safe and correct negotiation of 3 x 4 inch steps and 2 x 6 inch steps while holding onto 1 rail and holding onto Terrence on the other side with step to gait pattern with minimal verbal cueing provided for foot placement, hand placement, weight distribution, and posture to minimize pain report and reduce fall risk. Balance: Static Sitting: Normal Dynamic Sitting: Good Static Standing: Fair Dynamic Standing: Fair Special Tests: Mobility Limitations Standardized [employer] AM-PAC 6 clicks Basic Mobility Inpatient Short Form: Raw Score: 21 CMS Score: 29% deficit Informed Consent/Education: Patient instructed in purpose of PT consult. Packet containing HUNTER exercise protocol has been given to patient. Education and training on initial set of exercises that can be done at home have been completed with patient. Trained patient with correct performance of exercises below to maximize motor control, joint flexibility, soft tissue extensibility of the R hip musculature to facilitate return to independent functional mobility performance. Access Code: [email or web address] URL: [email or web address] Date: 12/30/2024 Prepared by: Rosibel Og Exercises - Gluteal Sets - 1 x daily - 7 x weekly - 1 sets - 10 reps - 5 hold - Supine Heel Slide - 1 x daily - 7 x weekly - 1 sets - 10 reps - 5 hold - Supine Ankle Pumps - 1 x daily - 7 x weekly - 1 sets - 10 reps - 5 hold - Seated March - 1 x daily - 7 x weekly - 1 sets - 10 reps - 5 hold - Seated Long Arc Quad - 1 x daily - 7 x weekly - 1 sets - 10 reps - 5 hold Assessment: Patient required the use of a front-wheeled walker for all mobility ADL performance to maximize independence and reduce fall risk. Patient presents with clinical signs and symptoms consistent with current/admitting diagnoses that have resulted to mobility limitations, gait instability, generalized weakness, and impairment of motor control as demonstrated by the following impairment level findings: 1. Decreased strength to R hip major muscle groups 2. Impaired standing balance Impairments are contributing to the following functional limitations: 1. Inability to safely ambulate without assistive device 2. Increase completion time for mobility ADL performance 3. Increased fall risk Patient is assessed as a 22132 moderate complexity based on the following: History: 64-year-old female with impairment level findings, functional limitations, and past medical history as indicated above Examination: Demonstrable impairment in strength, balance, and mobility level with underlying impairments and functional limitations as documented above Presentation: Evolving Decision Makin moderate complexity Goals: N/A. PT evaluation and 1-2 treatment sessions only for functional mobility training using recommended AD and for HEP instruction. Plan of Care/Treatment Plan: N/A. PT evaluation and 1-2 treatment session only for functional mobility training using recommended AD and for HEP instruction. DISCHARGE RECOMMENDATIONS: Home when medically cleared by orthopedic surgeon. Recommend outpatient PT services in order to optimize functional mobility outcomes and facilitate return to independent community ambulation without an assistive device. TREATMENT CODE/TIME: 75613 x 20 minutes for 1 unit, 87971 x 24 minutes for 2 units (14:30–15:14). Thank you for the opportunity to participate in the care of this patient. Rosibel Og PT, DPT, CLT [facility] [place], [place]
[2024-12-30] MEDS: Ondansetron 4 MG/2 ML VIAL IVP (15:15)
[2024-12-30] MEDS: Normal Saline Flush 10 ML SYR IV (15:16)
== END 2024-12-30 15:44 | disposition home or self-care (01) ==
LOC: SUR 07:42
PROVIDERS: PCP Nurse Practitioner Family; Visit Provider Student in an Organized Health Care Education/Training Program
PROC: (CPT 27130; principal; 2024-12-30 10:15)
DX: M16.11 Unilateral primary osteoarthritis, right hip (principal)
CPT/HCPCS: 27130; 20985; 97116; 97162; 73501; C1776; J0166; J0690; J1100; J1171; J1885; J2003; J2401; J2405; J2704; J2795; J3010; J3475

== ENCOUNTER 2025-01-14 11:20 | Outpatient (CLI) | payer MEDICAID, SELFPAY ==
--- NOTE | 2025-01-14 09:30 | DI.RAD_ITS ---
Exam(s) XR HIP RT COMPLETE AP PELVIS EXAM: XR HIP RT COMPLETE AP PELVIS CLINICAL HISTORY: 1ST POST OP S/P R HUNTER. TECHNIQUE: 2D digital imaging was performed. COMPARISON: CR XR PELVIS AP from 12/21/2024 FINDINGS: 3 views There has been interval placement of a right hip prosthesis on 12/30/2024. Components of this prosthesis are in satisfactory position alignment. No fracture or loosening evident. IMPRESSION: Stable satisfactory appearance of the recently placed right hip prosthesis. DATA REPOSITORY: RADIATION DOSE DELIVERED:
== END 2025-01-14 11:21 | disposition home or self-care (01) ==
LOC: DIORS 11:20
PROVIDERS: PCP Nurse Practitioner Family; Visit Provider Student in an Organized Health Care Education/Training Program
DX: Z96.641 Presence of right artificial hip joint (principal)
CPT/HCPCS: 73502